=== PATIENT | female | born 1935 | race Caucasian/White ===

== ENCOUNTER 2017-09-06 10:07 | Outpatient (CLI) | payer MEDICARE ==
--- NOTE | 2017-09-08 17:02 | Mammography Report ---
DIGITAL SCREENING MAMMOGRAM: 09/06/2017 CLINICAL INDICATION: An 82-year-old, for screening. COMPARISON: 08/2016, 08/2015, 05/2014, 04/2013, 01/2012, 09/2010. TECHNIQUE: Routine CC and MLO projections were obtained of the breasts. FINDINGS: Scattered fibroglandular tissue is present within the breasts. There are no dominant kin s, suspicious microcalcifications, or secondary signs of malignancy. In comparison to the previous st udies, there are no significant changes. ASSESSMENT: NO MAMMOGRAPHIC EVIDENCE OF MALIGNANCY. NO SIGNIFICANT INTERVAL CHANGES. RECOMMENDATION: Screening mammography is recommended annually. BIRADS category 1 - negative. STANDARD QUALIFYING STATEMENTS 1. This examination was reviewed with the aid of Computed-Aided Detection (CAD). 2. A negative or benign imaging report should not delay biopsy if clinically suspicious findings are present. Consider surgical consultation if warranted. More than 5% of cancers are not identified by i maging. 3. Dense breasts may obscure an underlying neoplasm. JOB #: [id number] EXT JOB #:[id number]
== END 2017-09-06 10:08 | disposition home or self-care (01) ==
LOC: DI.S 10:07
PROVIDERS: ATTEND Physician Assistant Medical
DX: Z12.31 Encounter for screening mammogram for malignant neoplasm of breast (principal)
CPT/HCPCS: 77067

== ENCOUNTER 2017-10-13 09:43 | Outpatient (CLI) | payer MEDICARE ==
[2017-10-13 17:48] LABS: BASOPHILS % (AUTO) 0.4 %; EOSINOPHILS # (AUTO) 0.1 10^3/uL (0.0-0.7); EOSINOPHILS % (AUTO) 0.7 %; HCT - HEMATOCRIT 43.1 % (37.0-47.0); HGB - HEMOGLOBIN 14.1 g/dL (12.0-16.0); LYMPHOCYTES # (AUTO) 0.9 10^3/uL (1.5-3.5); LYMPHOCYTES % (AUTO) 8.2 %; MEAN CORPUSCULAR HEMOGLOBIN 30.1 pg (27.0-31.0); MEAN CORPUSCULAR HGB CONC 32.7 g/dL (32.0-36.0); MEAN PLATELET VOLUME 8.2 fL (7.9-10.8); MONOCYTES % (AUTO) 10.1 %; NEUTROPHILS # (AUTO) 8.4 10^3/uL (1.5-6.6); NEUTROPHILS % (AUTO) 80.6 %; NUCLEATED RED BLOOD CELLS AUTO 0.1 /100WBC; RED BLOOD COUNT 4.68 10^6/uL (4.20-5.40); RED CELL DISTRIBUTION WIDTH 15.4 % (12.0-15.0); UNCORRECTED WHITE BLOOD COUNT 10.4 x10^3/uL; WHITE BLOOD COUNT 10.4 x10^3/uL (4.8-10.8)
[2017-10-13 17:56] LABS: ALBUMIN/GLOBULIN RATIO 1.5 (1.0-2.2); BILIRUBIN,TOTAL 0.8 mg/dL (0.2-1.0); BUN - BLOOD UREA NITROGEN 30 mg/dL (6-20); CALCIUM 8.7 mg/dL (8.5-10.3); CARBON DIOXIDE - CO2 28 mmol/L (21-32); CHLORIDE 97 mmol/L (101-111); CREATININE 1.2 mg/dL (0.4-1.0); GFR - MDRD 43 (>89); GLUCOSE 91 mg/dL (70-100); POTASSIUM 3.5 mmol/L (3.5-5.0); SODIUM 134 mmol/L (135-145); TOTAL PROTEIN 6.7 g/dL (6.7-8.2)
== END 2017-10-13 09:44 | disposition home or self-care (01) ==
LOC: LAB.F 09:43
PROVIDERS: ATTEND Physician Assistant Medical
DX: I10 Essential (primary) hypertension (principal); E03.9 Hypothyroidism, unspecified
CPT/HCPCS: 36415; 80053; 84443; 85025

== ENCOUNTER 2018-04-20 14:05 | Outpatient (CLI) | payer MEDICARE | END 2018-04-20 14:06 | disposition home or self-care (01) | LOC: LAB.F 14:05 | PROVIDERS: ATTEND Physician Assistant Medical | DX: N28.9 Disorder of kidney and ureter, unspecified (principal) | CPT/HCPCS: 36415; 80053 ==

== ENCOUNTER 2018-04-25 09:01 | Outpatient (CLI) | payer MEDICARE ==
[2018-04-25 18:16] LABS: ALBUMIN 3.8 g/dL (3.2-5.5); ALBUMIN/GLOBULIN RATIO 1.4 (1.0-2.2); BILIRUBIN,TOTAL 0.7 mg/dL (0.2-1.0); CALCIUM 9.6 mg/dL (8.5-10.3); TOTAL PROTEIN 6.5 g/dL (6.7-8.2)
== END 2018-04-25 09:02 | disposition home or self-care (01) ==
LOC: LAB.F 09:01
PROVIDERS: ATTEND Physician Assistant Medical
DX: N28.9 Disorder of kidney and ureter, unspecified (principal)
CPT/HCPCS: 36415; 80053

== ENCOUNTER 2018-09-16 15:09 | Outpatient (CLI) | payer MEDICARE ==
--- NOTE | 2018-09-19 08:40 | Mammography Report ---
Reason: ANNUAL SCREENING Procedure Date: 09/16/2018 Accession Number: [id number] / [id number] Procedure: ALANNA - Screening Mammo w/Jsakaran CPT Code: FULL RESULT: EXAM: Screening Mammo w/Jaskaran DATE: 09/16/2018 3:36 PM CLINICAL HISTORY: Routine screening. No personal or family history of breast cancer reported. TECHNIQUE: Bilateral CC and MLO views were obtained. COMPARISON: 09/06/2017 through 05/29/2014 FINDINGS: The breasts demonstrate scattered fibroglandular densities bilaterally. There are no suspicious masses, calcifications or areas of distortion. IMPRESSION: Negative examination RECOMMENDATION: Routine annual screening unless otherwise clinically indicated. BI-RADS CATEGORY 1: Negative STANDARD QUALIFYING STATEMENTS: 1. This examination was not reviewed with the aid of Computer-Aided Detection (CAD). 2. A negative or benign imaging report should not preclude biopsy if clinically suspicious findings are present. 3. Dense breasts may obscure an underlying neoplasm. 4. This examination was reviewed with the aid of 3D breast imaging (tomosynthesis).
== END 2018-09-16 15:10 | disposition home or self-care (01) ==
LOC: DI 15:09
DX: Z12.31 Encounter for screening mammogram for malignant neoplasm of breast (principal)
CPT/HCPCS: 77063; 77067

== ENCOUNTER 2018-11-11 13:10 | Outpatient (CLI) | payer MEDICARE ==
[2018-11-11 17:50] LABS: BASOPHILS % (AUTO) 0.6 %; EOSINOPHILS # (AUTO) 0.1 10^3/uL (0.0-0.7); EOSINOPHILS % (AUTO) 2.2 %; HGB - HEMOGLOBIN 13.7 g/dL (12.0-16.0); LYMPHOCYTES # (AUTO) 0.9 10^3/uL (1.5-3.5); LYMPHOCYTES % (AUTO) 13.8 %; MEAN CORPUSCULAR HEMOGLOBIN 31.3 pg (27.0-31.0); MEAN CORPUSCULAR HGB CONC 33.6 g/dL (32.0-36.0); MEAN CORPUSCULAR VOLUME 93.4 fL (81.0-99.0); MEAN PLATELET VOLUME 8.1 fL (7.9-10.8); MONOCYTES # (AUTO) 0.9 10^3/uL (0.0-1.0); MONOCYTES % (AUTO) 14.6 %; NEUTROPHILS # (AUTO) 4.3 10^3/uL (1.5-6.6); NEUTROPHILS % (AUTO) 68.8 %; PLT - PLATELET COUNT 301 10^3/uL (130-450); RED BLOOD COUNT 4.38 10^6/uL (4.20-5.40); RED CELL DISTRIBUTION WIDTH 13.7 % (12.0-15.0); WHITE BLOOD COUNT 6.2 x10^3/uL (4.8-10.8)
[2018-11-11 18:12] LABS: ALBUMIN/GLOBULIN RATIO 1.4 (1.0-2.2); BILIRUBIN,TOTAL 0.6 mg/dL (0.2-1.0); CALCIUM 9.1 mg/dL (8.5-10.3); CREATININE 0.8 mg/dL (0.4-1.0); TOTAL PROTEIN 6.8 g/dL (6.7-8.2)
== END 2018-11-11 13:11 | disposition home or self-care (01) ==
LOC: LAB.F 13:10
PROVIDERS: ATTEND Physician Assistant Medical
DX: N28.9 Disorder of kidney and ureter, unspecified (principal); D50.9 Iron deficiency anemia, unspecified; M35.3 Polymyalgia rheumatica
CPT/HCPCS: 36415; 80053; 82728; 83540; 84466; 85025; 85651

== ENCOUNTER 2018-12-09 09:15 | Outpatient (CLI) | payer MEDICARE ==
--- NOTE | 2018-12-12 16:31 | DEXA Report ---
Reason: POSTMENOPAUSAL STATUS Procedure Date: 12/09/2018 Accession Number: [id number] / [id number] Procedure: DEX - Dexa Spine and/or Hip CPT Code: FULL RESULT: EXAM: Dexa Spine and/or Hip DATE: 12/09/2018 10:13 AM CLINICAL HISTORY: POSTMENOPAUSAL STATUS TECHNIQUE: Dual energy x-ray absorptiometry (DXA) was performed on a Milk System. Regions measured are the AP Spine, femoral neck, and if needed forearm. COMPARISON: None. In accordance with the International Society for Clinical Densitometry (ISCD) guidelines, data from previous exams may be reanalyzed using current recommendations and techniques. This is done to allow a more accurate basis for comparison with the current study. FINDINGS: The data for the lumbar spine is as follows: BMD (g/cm/cm) T-SCORE Z-SCORE REGION L1 0.937 -1.6 0.4 L2 1.054 -1.2 0.8 L3 1.068 -1.1 1.0 L4 1.029 -1.4 0.6 TOTAL 1.024 -1.3 0.8 NOTE: All evaluable vertebrae are used for classification The data for the hip is as follows: BMD (g/cm/cm) T-SCORE Z-SCORE REGION Neck 0.690 -2.5 0.0 TOTAL 0.728 -2.2 0.1 NOTE: The femoral neck or total proximal femur, whichever is lowest, is used for classification. IMPRESSION: THE WHO CLASSIFICATION BASED ON THE INTERNATIONAL REFERENCE STANDARD IS OSTEOPOROSIS. THE FRACTURE RISK IS HIGH. RECOMMENDATION: Patients with diagnosis of osteoporosis or osteopenia should have regular bone mineral density assessment. For those eligible for Medicare, routine testing is allowed once every 2 years. Testing frequency can be increased for patients who have rapidly progressing disease or for those who are receiving medical therapy to restore bone mass. COMMENT: World Health Organization (WHO) definitions for osteoporosis and osteopenia: NORMAL BMD: T-score at -1.0 or higher, fracture risk is low OSTEOPENIA BMD: T-score between -1.0 and -2.5, fracture risk is increased. OSTEOPOROSIS BMD: T-score at -2.5 or lower, fracture risk is high. National Osteoporosis Foundation recommends: 1. Obtain adequate dietary calcium (at least 1200 mg per day) and vitamin D (400-800 international units per day). 2. Participate, as appropriate, in regular weightbearing and muscle-strengthening exercise. 3. Avoid tobacco use and reduce alcohol and caffeine intake. 4. For more detailed information see the website at www.NOF.org.
== END 2018-12-09 09:16 | disposition home or self-care (01) ==
LOC: DI 09:15
PROVIDERS: ATTEND Physician Assistant Medical
DX: M81.0 Age-related osteoporosis without current pathological fracture (principal)
CPT/HCPCS: 77080

== ENCOUNTER 2019-02-17 11:50 | Outpatient (CLI) | payer MEDICARE | END 2019-02-17 11:51 | disposition home or self-care (01) | LOC: LAB.F 11:50 | PROVIDERS: ATTEND Physician Assistant Medical | DX: E03.9 Hypothyroidism, unspecified (principal) | CPT/HCPCS: 36415; 84443 ==

== ENCOUNTER 2019-11-14 07:30 | Outpatient (CLI) | payer MEDICARE ==
[2019-11-14 11:29] LABS: ALBUMIN 3.9 g/dL (3.2-5.5); ALBUMIN/GLOBULIN RATIO 1.4 (1.0-2.2); ALKALINE PHOSPHATASE 74 IU/L (42-121); ALT ALANINE AMINOTRANSFERASE 21 IU/L (10-60); AST ASPARTATE AMINOTRANSFERASE 24 IU/L (10-42); BILIRUBIN,TOTAL 0.7 mg/dL (0.2-1.0); BUN - BLOOD UREA NITROGEN 15 mg/dL (6-20); CALCIUM 8.8 mg/dL (8.5-10.3); CARBON DIOXIDE - CO2 27 mmol/L (21-32); CHLORIDE 91 mmol/L (101-111); CHOL/HDL RATIO 3.3 (<4.4); CHOLESTEROL 210 mg/dL; CREATININE 0.9 mg/dL (0.4-1.0); GFR - MDRD 60 (>89); GLUCOSE 102 mg/dL (70-100); HDL CHOLESTEROL 64 mg/dL; LDL CHOLESTEROL,CALCULATED 121 mg/dL; LDL/HDL RATIO 1.9 (<4.4); SODIUM 127 mmol/L (135-145); TOTAL PROTEIN 6.7 g/dL (6.7-8.2); VLDL CHOLESTEROL 25 mg/dL
[2019-11-14 11:32] LABS: BASOPHILS % (AUTO) 0.6 %; EOSINOPHILS # (AUTO) 0.1 10^3/uL (0.0-0.7); EOSINOPHILS % (AUTO) 1.5 %; HGB - HEMOGLOBIN 11.2 g/dL (12.0-16.0); LYMPHOCYTES # (AUTO) 0.9 10^3/uL (1.5-3.5); LYMPHOCYTES % (AUTO) 12.2 %; MEAN CORPUSCULAR HEMOGLOBIN 30.4 pg (27.0-31.0); MEAN CORPUSCULAR HGB CONC 33.3 g/dL (32.0-36.0); MEAN CORPUSCULAR VOLUME 91.1 fL (81.0-99.0); MEAN PLATELET VOLUME 9.1 fL (7.9-10.8); MONOCYTES # (AUTO) 0.6 10^3/uL (0.0-1.0); MONOCYTES % (AUTO) 8.3 %; NEUTROPHILS # (AUTO) 5.5 10^3/uL (1.5-6.6); PLT - PLATELET COUNT 436 10^3/uL (130-450); RED BLOOD COUNT 3.69 10^6/uL (4.20-5.40); RED CELL DISTRIBUTION WIDTH 12.7 % (12.0-15.0); WHITE BLOOD COUNT 7.2 x10^3/uL (4.8-10.8)
[2019-11-14 11:35] LABS: HB2 TOTAL 11.3 g/dL; HEMOGLOBIN A1C 0.43 g/dL; HEMOGLOBIN A1C % 5.6 % (4.6-6.2)
== END 2019-11-14 07:31 | disposition home or self-care (01) ==
LOC: LAB.S 07:30
PROVIDERS: ATTEND Registered Nurse
DX: E87.1 Hypo-osmolality and hyponatremia (principal); D50.9 Iron deficiency anemia, unspecified; R73.01 Impaired fasting glucose; E03.9 Hypothyroidism, unspecified; M35.3 Polymyalgia rheumatica; M50.30 Other cervical disc degeneration, unspecified cervical region; M15.9 Polyosteoarthritis, unspecified
CPT/HCPCS: 36415; 80053; 80061; 83036; 83721; 84443; 85025

== ENCOUNTER 2019-11-21 15:12 | Outpatient (CLI) | payer MEDICARE ==
--- NOTE | 2019-11-21 16:32 | XRAY Report ---
Reason: ACUTE LOW BACK PAIN Procedure Date: 11/21/2019 Accession Number: [id number] / [id number] Procedure: XRS - Lumbar Spine Complete CPT Code: Final Report FULL RESULT: EXAM: LUMBOSACRAL SPINE RADIOGRAPHY EXAM DATE: 11/21/2019 03:32 PM. CLINICAL HISTORY: ACUTE LOW BACK PAIN. COMPARISONS: None. TECHNIQUE: 5 views. FINDINGS: Alignment: Normal. No spondylolisthesis or scoliosis. Visualized osseous neural foramina on the oblique views demonstrate osseous patency, suboptimal visualization of the upper lumbar spine. Bones: Five [id number] lumbar vertebral bodies are present, vestigial ribs are noted at the lowest thoracic level. The bones are qualitatively osteopenic; this limits evaluation for underlying fractures or masses. There is minimal anterior loss of height of T12, 25% or less, age indeterminate. Within these limitations no other convincing fracture is seen. Disks: Multilevel marginal osteophyte ptosis without overt loss of disk space height. Facets: Multilevel facet arthropathy is most pronounced at L4 and L5 where it is at least moderate. Sacroiliac Joints: Unremarkable. Soft Tissues: Normal. The visualized bowel gas pattern is normal. IMPRESSION: Age indeterminate mild loss of height anteriorly of the T12 vertebral body. RADIA
== END 2019-11-21 15:13 | disposition home or self-care (01) ==
LOC: DI.S 15:12
PROVIDERS: ATTEND Internal Medicine
DX: M89.8X8 Other specified disorders of bone, other site (principal)
CPT/HCPCS: 72110

== ENCOUNTER 2019-11-24 15:19 | Outpatient (CLI) | payer MEDICARE | END 2019-11-24 15:20 | disposition EMS.NT | LOC: EMS 15:19 | PROVIDERS: ATTEND Surgery | DX: R53.1 Weakness (principal); M54.5 Low back pain ==

== ENCOUNTER 2019-12-18 13:49 | Outpatient (CLI) | payer MEDICARE ==
[2019-12-18 18:04] LABS: CALCIUM 8.8 mg/dL (8.5-10.3); CREATININE 0.9 mg/dL (0.4-1.0)
== END 2019-12-18 13:50 | disposition home or self-care (01) ==
LOC: LAB.S 13:49
PROVIDERS: ATTEND Physician Assistant Medical
DX: E87.1 Hypo-osmolality and hyponatremia (principal); D50.9 Iron deficiency anemia, unspecified
CPT/HCPCS: 36415; 80048; 82728

== ENCOUNTER 2020-08-09 09:17 | Outpatient (CLI) | payer MEDICARE ==
[2020-08-09 15:20] LABS: BASOPHILS # (AUTO) 0.1 10^3/uL (0.0-0.1); BASOPHILS % (AUTO) 0.7 %; EOSINOPHILS # (AUTO) 0.2 10^3/uL (0.0-0.7); EOSINOPHILS % (AUTO) 2.8 %; HGB - HEMOGLOBIN 14.1 g/dL (12.0-16.0); LYMPHOCYTES # (AUTO) 1.1 10^3/uL (1.5-3.5); LYMPHOCYTES % (AUTO) 15.3 %; MEAN CORPUSCULAR HEMOGLOBIN 31.5 pg (27.0-31.0); MEAN CORPUSCULAR HGB CONC 32.2 g/dL (32.0-36.0); MEAN CORPUSCULAR VOLUME 97.8 fL (81.0-99.0); MEAN PLATELET VOLUME 9.7 fL (7.9-10.8); MONOCYTES # (AUTO) 0.8 10^3/uL (0.0-1.0); MONOCYTES % (AUTO) 10.1 %; NEUTROPHILS # (AUTO) 5.3 10^3/uL (1.5-6.6); NEUTROPHILS % (AUTO) 70.8 %; PLT - PLATELET COUNT 296 10^3/uL (130-450); RED BLOOD COUNT 4.48 10^6/uL (4.20-5.40); RED CELL DISTRIBUTION WIDTH 13.2 % (12.0-15.0); WHITE BLOOD COUNT 7.4 x10^3/uL (4.8-10.8)
[2020-08-09 15:39] LABS: % IRON SATURATION 18 % (20-50); ALBUMIN 3.8 g/dL (3.2-5.5); ALBUMIN/GLOBULIN RATIO 1.3 (1.0-2.2); ALKALINE PHOSPHATASE 65 IU/L (42-121); ALT ALANINE AMINOTRANSFERASE 20 IU/L (10-60); AST ASPARTATE AMINOTRANSFERASE 21 IU/L (10-42); BILIRUBIN,TOTAL 0.8 mg/dL (0.2-1.0); BUN - BLOOD UREA NITROGEN 25 mg/dL (6-20); CARBON DIOXIDE - CO2 28 mmol/L (21-32); CHLORIDE 97 mmol/L (101-111); CHOL/HDL RATIO 4.1 (<4.4); CHOLESTEROL 223 mg/dL; CREATININE 0.9 mg/dL (0.4-1.0); GLUCOSE 95 mg/dL (70-100); HDL CHOLESTEROL 54 mg/dL; IRON 55 ug/dL (28-170); LDL CHOLESTEROL,CALCULATED 136 mg/dL; LDL/HDL RATIO 2.5 (<4.4); SODIUM 133 mmol/L (135-145); TOTAL IRON BINDING CAPACITY 312 ug/dL (250-450); TOTAL PROTEIN 6.7 g/dL (6.7-8.2); TRANSFERRIN 223 mg/dL (192-382); VLDL CHOLESTEROL 33 mg/dL
== END 2020-08-09 09:18 | disposition home or self-care (01) ==
LOC: LAB.S 09:17
PROVIDERS: ATTEND Registered Nurse
DX: I10 Essential (primary) hypertension (principal); E03.9 Hypothyroidism, unspecified; E87.1 Hypo-osmolality and hyponatremia; D50.9 Iron deficiency anemia, unspecified; F32.9 Major depressive disorder, single episode, unspecified
CPT/HCPCS: 36415; 80053; 80061; 82728; 83540; 83721; 84443; 84466; 85025

== ENCOUNTER 2021-08-15 09:00 | Outpatient (CLI) | payer MEDICARE ==
[2021-08-15 14:45] LABS: BASOPHILS % (AUTO) 0.6 %; EOSINOPHILS # (AUTO) 0.2 10^3/uL (0.0-0.7); EOSINOPHILS % (AUTO) 3.5 %; HCT - HEMATOCRIT 45.8 % (37.0-47.0); HGB - HEMOGLOBIN 14.7 g/dL (12.0-16.0); LYMPHOCYTES % (AUTO) 15.4 %; MEAN CORPUSCULAR HEMOGLOBIN 30.9 pg (27.0-31.0); MEAN CORPUSCULAR HGB CONC 32.1 g/dL (32.0-36.0); MEAN CORPUSCULAR VOLUME 96.4 fL (81.0-99.0); MEAN PLATELET VOLUME 9.9 fL (7.9-10.8); MONOCYTES # (AUTO) 0.6 10^3/uL (0.0-1.0); NEUTROPHILS # (AUTO) 4.4 10^3/uL (1.5-6.6); PLT - PLATELET COUNT 283 10^3/uL (130-450); RED BLOOD COUNT 4.75 10^6/uL (4.20-5.40); RED CELL DISTRIBUTION WIDTH 13.2 % (12.0-15.0); WHITE BLOOD COUNT 6.3 x10^3/uL (4.8-10.8)
[2021-08-15 15:16] LABS: ALBUMIN/GLOBULIN RATIO 1.4 (1.0-2.2); ALKALINE PHOSPHATASE 68 IU/L (42-121); ALT ALANINE AMINOTRANSFERASE 17 IU/L (10-60); AST ASPARTATE AMINOTRANSFERASE 21 IU/L (10-42); BILIRUBIN,TOTAL 0.7 mg/dL (0.2-1.0); BUN - BLOOD UREA NITROGEN 23 mg/dL (6-20); CALCIUM 8.8 mg/dL (8.5-10.3); CARBON DIOXIDE - CO2 29 mmol/L (21-32); CHLORIDE 94 mmol/L (101-111); CHOL/HDL RATIO 4.4 (<4.4); CHOLESTEROL 219 mg/dL; CREATININE 0.9 mg/dL (0.4-1.0); GFR - MDRD 59 (>89); GLUCOSE 96 mg/dL (70-100); HDL CHOLESTEROL 50 mg/dL; LDL CHOLESTEROL,CALCULATED 121 mg/dL; LDL/HDL RATIO 2.4 (<4.4); POTASSIUM 4.4 mmol/L (3.5-5.0); SODIUM 131 mmol/L (135-145); TOTAL PROTEIN 6.8 g/dL (6.7-8.2); TRIGLYCERIDES 240 mg/dL; VLDL CHOLESTEROL 48 mg/dL
[2021-08-15 15:20] LABS: T4 (THYROXINE) 7.41 ug/dL (6.09-12.23)
[2021-08-15 15:24] LABS: THYROID STIMULATING HORMONE 2.83 uIU/mL (0.34-5.60)
== END 2021-08-15 09:01 | disposition home or self-care (01) ==
LOC: LAB.S 09:00
PROVIDERS: ATTEND Registered Nurse
DX: E87.1 Hypo-osmolality and hyponatremia (principal); D50.9 Iron deficiency anemia, unspecified; E03.9 Hypothyroidism, unspecified; M35.3 Polymyalgia rheumatica; I10 Essential (primary) hypertension
CPT/HCPCS: 36415; 80053; 80061; 83721; 84153; 84436; 84443; 84480; 85025

== ENCOUNTER 2022-10-24 09:00 | Outpatient (CLI) | payer MEDICARE ==
[2022-10-24 09:14] LABS: BASOPHILS # (AUTO) 0.1 10^3/uL (0.0-0.1); BASOPHILS % (AUTO) 0.8 %; EOSINOPHILS # (AUTO) 0.4 10^3/uL (0.0-0.7); EOSINOPHILS % (AUTO) 5.3 %; HCT - HEMATOCRIT 40.5 % (37.0-47.0); HGB - HEMOGLOBIN 13.1 g/dL (12.0-16.0); LYMPHOCYTES % (AUTO) 13.4 %; MEAN CORPUSCULAR HEMOGLOBIN 31.6 pg (27.0-31.0); MEAN CORPUSCULAR HGB CONC 32.3 g/dL (32.0-36.0); MEAN CORPUSCULAR VOLUME 97.6 fL (81.0-99.0); MEAN PLATELET VOLUME 9.2 fL (7.9-10.8); MONOCYTES # (AUTO) 0.7 10^3/uL (0.0-1.0); MONOCYTES % (AUTO) 9.1 %; NEUTROPHILS # (AUTO) 5.1 10^3/uL (1.5-6.6); NEUTROPHILS % (AUTO) 71.1 %; PLT - PLATELET COUNT 302 10^3/uL (130-450); RED BLOOD COUNT 4.15 10^6/uL (4.20-5.40); RED CELL DISTRIBUTION WIDTH 13.1 % (12.0-15.0); WHITE BLOOD COUNT 7.1 x10^3/uL (4.8-10.8)
[2022-10-24 09:32] LABS: ALBUMIN 3.9 g/dL (3.2-5.5); ALBUMIN/GLOBULIN RATIO 1.3 (1.0-2.2); ALKALINE PHOSPHATASE 55 IU/L (42-121); ALT ALANINE AMINOTRANSFERASE 20 IU/L (10-60); AST ASPARTATE AMINOTRANSFERASE 21 IU/L (10-42); BILIRUBIN,TOTAL 0.5 mg/dL (0.2-1.0); BUN - BLOOD UREA NITROGEN 24 mg/dL (6-20); CALCIUM 8.9 mg/dL (8.5-10.3); CARBON DIOXIDE - CO2 29 mmol/L (21-32); CHLORIDE 98 mmol/L (101-111); CHOL/HDL RATIO 4.2 (<4.4); CHOLESTEROL 197 mg/dL; GFR - MDRD 52 (>89); GLUCOSE 95 mg/dL (70-100); HDL CHOLESTEROL 47 mg/dL; LDL CHOLESTEROL,CALCULATED 116 mg/dL; LDL/HDL RATIO 2.5 (<4.4); POTASSIUM 4.1 mmol/L (3.5-5.0); SODIUM 135 mmol/L (135-145); TOTAL PROTEIN 6.8 g/dL (6.7-8.2); TRIGLYCERIDES 168 mg/dL; VLDL CHOLESTEROL 34 mg/dL
[2022-10-24 09:43] LABS: THYROID STIMULATING HORMONE 2.37 uIU/mL (0.34-5.60)
== END 2022-10-24 09:01 | disposition home or self-care (01) ==
LOC: LAB 09:00
PROVIDERS: ATTEND Registered Nurse
DX: I10 Essential (primary) hypertension (principal); Z79.899 Other long term (current) drug therapy; E87.1 Hypo-osmolality and hyponatremia; D50.9 Iron deficiency anemia, unspecified; E03.9 Hypothyroidism, unspecified
CPT/HCPCS: 36415; 80053; 80061; 83721; 84443; 85025

== ENCOUNTER 2023-08-08 11:37 | Emergency (ER) | payer MEDICARE ==
--- NOTE | 2023-08-08 12:16 | ED Physician Documentation ---
PD HPI FOCAL NEURO - Stated complaint Stated Complaint: LT ARM WEAK/NOT FEELING WELL - Chief complaint Chief Complaint: Neuro - History obtained from History obtained from: Patient, Family - History of Present Illness Timing - onset: How many days ago (patient is feeling "just not myself" for past few days. Has also noted left arm weakness for the past 10 days off and on. Denies numbness. No weakness of leg/face. No visual changes. No trouble speaking. Family member states the patient has complained of arm feeling weak intermittently.) Timing - duration: Days (10) Timing - details: Gradual onset, Waxing and waning Severity of deficit: Mild (she says feels weak for lifting arm. She denies problems with using utensils, nor with gripping/lifting such as glasses for drinking.) Weakness: Arm, Left. No: Face, Leg Numbness: No: Face, Arm, Leg Associated symptoms: Other (she had noted her BP elevated last week and went to [facility]. Did not tell them of arm weakness at that time. They increased her CLonidine patch from 0.1 mg to 0.3 mg. Family takes BP 2-3 times at home and has recorded SBP at 118, 108, 106, but others 130-145 systolic.). No: Headache, Chest pain, Neck pain, Back pain, Fever Contributing factors: negative: Anticoagulated Baseline status: positive: A&OX3, ambulatory, indep Similar symptoms before: Has not had sx before Recently seen: Clinic (for HTN) Review of Systems Constitutional: denies: Fever Nose: denies: Rhinorrhea / runny nose, Congestion Throat: denies: Sore throat Cardiac: denies: Chest pain / pressure, Palpitations, Pedal edema, Calf pain Respiratory: denies: Dyspnea, Cough, Wheezing GI: denies: Abdominal Pain, Nausea, Vomiting, Diarrhea Musculoskeletal: denies: Neck pain, Back pain Neurologic: reports: Focal weakness (left arm gross motor for 10 days). denies: Generalized weakness, Numbness, Difficulty speaking, Near syncope (but feeling ightheaded at times to past several days.), Headache PD PAST MEDICAL HISTORY - Past Medical History Cardiovascular: Hypertension Respiratory: None Neuro: None Endocrine/Autoimmune: None - Allergies Allergies/Adverse Reactions: Allergies Allergy/AdvReac Type Severity Reaction Status Date / Time No Known Drug Allergies Allergy Verified 08/08/23 11:52 PD ED PE NORMAL - Vitals Vital signs reviewed: Yes - General General: Alert and oriented X 3, No acute distress, Well developed/nourished - HEENT HEENT: Pharynx benign - Neck Neck: Supple, no meningeal sign, No adenopathy - Cardiac Cardiac: RRR, No murmur - Respiratory Respiratory: No respiratory distress, Clear bilaterally - Abdomen Abdomen: Soft, Non tender - Derm Derm: Normal color, Warm and dry - Extremities Extremities: No edema, No calf tenderness / cord - Neuro Neuro: Alert and oriented X 3, No motor deficit (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 FInger dexterity seems okay and symmetric. No faical weakness. Walks without limp. ), No sensory deficit, Normal speech NIHSS - Level of Consciousness Level of consciousness: (0) Alert, Keenly responsive LOC Questions: (0) Answers both Q's correct LOC Commands: (0) Performs both correctly - Gaze Best Gaze: (0) Normal - Visual Visual: (0) No loss - Facial Palsy Facial Palsy: (0) Normal, symmetrical movement - Motor Arms (both separate) Motor Arm (right): (0) No drift Motor Arm (left): (0) No drift - Motor Legs (both separate) Motor Leg (right): (0) No drift Motor Leg (left): (0) No drift - Limb Ataxia Limb Ataxia: (0) Absent - Sensory Sensory: (0) Normal - Best Language Best Language: (0) No aphasia - Dysarthria Dysarthria: (0) Normal - Extinction and Inattention (formally neg Extinction and inattention: (0) No abnormality - Total Score/Results Total Score/Result: 0 Results - Vitals Vitals: Oxygen O2 Source Room air - Labs Labs: Laboratory Tests 08/08/23 08/08/23 08/08/23 12:16 12:16 12:16 WBC 7.7 RBC 4.20 Hgb 13.7 Hct 39.6 MCV 94.3 MCH 32.6 H MCHC 34.6 RDW 12.7 Plt Count 257 MPV 8.7 Neut # (Auto) 5.7 Lymph # (Auto) 0.8 L Ida # (Auto) 0.9 Eos # (Auto) 0.3 Baso # (Auto) 0.1 Absolute Nucleated RBC 0.00 Nucleated RBC % 0.0 ESR 5 Sodium 128 L Potassium 4.5 Chloride 94 L Carbon Dioxide 29 Anion Gap 5.0 L BUN 26 H Creatinine 1.0 Estimated GFR (MDRD) 52 L Glucose 111 H Calcium 9.0 Magnesium Total Bilirubin 0.4 AST 16 ALT 17 Alkaline Phosphatase 57 C-Reactive Protein B-Natriuretic Peptide Total Protein 6.4 Albumin 3.9 Globulin 2.5 Albumin/Globulin Ratio 1.6 Lipase 41 08/08/23 08/08/23 12:16 12:16 WBC RBC Hgb Hct MCV MCH MCHC RDW Plt Count MPV Neut # (Auto) Lymph # (Auto) Ida # (Auto) Eos # (Auto) Baso # (Auto) Absolute Nucleated RBC Nucleated RBC % ESR Sodium Potassium Chloride Carbon Dioxide Anion Gap BUN Creatinine Estimated GFR (MDRD) Glucose Calcium Magnesium 1.7 Total Bilirubin AST ALT Alkaline Phosphatase C-Reactive Protein 0.8 H B-Natriuretic Peptide 213 H Total Protein Albumin Globulin Albumin/Globulin Ratio Lipase - Rads (name of study) head CT Relevant Findings:: Prelim report reviewed (no acute abnormality), EMP independent interpretation of test PD Medical Decision Making - ED course Complexity details: reviewed results (sodium of 128 is not terribly low but is newly low for her. This may be leading to some of her symptoms. The arm weakness may be related to shoulder muscles/etc and is not patterned as I would think for central cause. Head CT did not show any abnormality. MRI could be considered if persists.), considered differential (Patient with lightheaded and "just not feeling right". Can check lytes, CBC, head CT. The record of measured BPs over the past week show some relatively too low at 105-120 range. ), d/w patient Reviewed Lab Results: sodium is low but other lytes are good as is renal function. Daughter states pt PCP is putting in for ECHO for the patient. I suggested that they ask PCP about renal artery US if they are wanting to work up persistent HTN. ED course: The general feeling of unwell and "not myself" may relate to low sodium new for her, and also the increased clonidine could be having central side effects (as is common for it). Also consider relatively low BP causing some symptoms. Her BP today is a bit high, but family has recorded values 2-3 times daily for the past week and is much lower after adjusted BP med. I would consider decreasing to the middle dose (had been 0.1 mg patch rasied to 0.3; I would suggest trying 0.2 and if still relatively low at times, then back to 0.1). She had been on diuretic and is not now, so presume the low sodium will self-correct with diet, but I did give some NS IV fluids here. Departure - Departure Disposition: Home, Self Care Clinical Impression: Hyponatremia, Lightheadedness, Left arm weakness, History of hypertension Condition: Stable Record reviewed to determine appropriate education?: Yes Instructions: ED Weakness [facility] Follow-Up: Kristine Han ARNP [Primary Care Provider] - Comments: Your head CT scan does not show any acute abnormality. In particular no signs of bleeding, swelling, tumors, findings of stroke. The CT can miss mild subtle abnormalities. But given your symptoms right now I do feel it is an adequate test to exclude significant problems. Your sodium level is low at 128 which may account for the symptoms you are having of not "quite feeling yourself" and lightheadedness per se. You could also be having symptoms related to relatively low blood pressure or you. I would suggest decreasing your clonidine from the recent 0.3 mg dose patch back down to either 0.1 or 0.2. If you still have the 0.1 patches you can do 2 of them to get a 0.2 dosing. This will be temporary for now to see how your blood pressure does with that and if your symptoms improve. The low sodium should correct with regular diet and just continuing to be off the diuretic. The clonidine could be affecting it a little as well and the lower dose of that will help as well. I would not add salt/sodium to your diet as that does not really contribute to the serum sodium level. That is more regulated by the kidneys and interacted with met by medications. The left arm weakness may be related to a more local process such as some inflammation in the muscles from your recent vaccines or sometimes even a stretching of the nerve through the shoulder. See if that clears up over the next several days to week. Contact your primary care in the next day or 2. Let them know that we had decre ased your clonidine back down and that I also suggest having a repeat chemistry panel to look at your electrolytes and sodium level in particular later in the week. See if they can order those outpatient. Forms: PCP List Discharge Date/Time: 08/08/23 14:45
[2023-08-08 12:20] LABS: BASOPHILS # (AUTO) 0.1 10^3/uL (0.0-0.1); BASOPHILS % (AUTO) 0.6 %; EOSINOPHILS # (AUTO) 0.3 10^3/uL (0.0-0.7); EOSINOPHILS % (AUTO) 3.6 %; HCT - HEMATOCRIT 39.6 % (37.0-47.0); HGB - HEMOGLOBIN 13.7 g/dL (12.0-16.0); LYMPHOCYTES # (AUTO) 0.8 10^3/uL (1.5-3.5); LYMPHOCYTES % (AUTO) 10.9 %; MEAN CORPUSCULAR HEMOGLOBIN 32.6 pg (27.0-31.0); MEAN CORPUSCULAR HGB CONC 34.6 g/dL (32.0-36.0); MEAN CORPUSCULAR VOLUME 94.3 fL (81.0-99.0); MEAN PLATELET VOLUME 8.7 fL (7.9-10.8); MONOCYTES # (AUTO) 0.9 10^3/uL (0.0-1.0); MONOCYTES % (AUTO) 11.3 %; NEUTROPHILS # (AUTO) 5.7 10^3/uL (1.5-6.6); NEUTROPHILS % (AUTO) 73.5 %; PLT - PLATELET COUNT 257 10^3/uL (130-450); RED CELL DISTRIBUTION WIDTH 12.7 % (12.0-15.0); WHITE BLOOD COUNT 7.7 x10^3/uL (4.8-10.8)
[2023-08-08 12:38] LABS: ALBUMIN 3.9 g/dL (3.2-5.5); ALBUMIN/GLOBULIN RATIO 1.6 (1.0-2.2); BILIRUBIN,TOTAL 0.4 mg/dL (0.2-1.0); POTASSIUM 4.5 mmol/L (3.5-4.5); TOTAL PROTEIN 6.4 g/dL (6.4-8.9)
[2023-08-08] MEDS ORDERED: SODIUM CHLORIDE 0.9% 500 ML IV STA (12:53)
[2023-08-08 13:12] LABS: CRP - C-REACTIVE PROTEIN 0.8 mg/dL (<0.5); MAGNESIUM 1.7 mg/dL (1.7-2.3)
--- NOTE | 2023-08-08 14:16 | CT Report ---
PROCEDURE: HEAD WO INDICATIONS: left arm weakness x 10 days TECHNIQUE: Noncontrast 4.5 mm thick angled axial sections acquired from the foramen magnum to the vertex. For r adiation dose reduction, the following was used: automated exposure control, adjustment of mA and/or kV according to patient size. COMPARISON: None. FINDINGS: Image quality: Excellent. CSF spaces: Basal cisterns are patent. No extra-axial fluid collections. Ventricles are normal in size and shape. Brain: No midline shift. No intracranial masses or hemorrhage. Areas of hypoattenuation within the deep and periventricular white matter, nonspecific and likely representing chronic microvascular isch emic change. Age-related global volume loss. Desouza-white matter interface is normal. Skull and face: Calvarium and visualized facial bones are intact, without suspicious lesions. Bilat eral lens replacements. The orbits are otherwise normal in appearance. Sinuses: Paranasal sinus mucosal thickening. The mastoids are clear. IMPRESSION: No acute intracranial pathology. Reviewed by: Kuldeep Velásquez MD on 08/08/2023 2:15 PM PDT Approved by: Kuldeep Velásquez MD on 08/08/2023 2:15 PM PDT Station ID: [id number]
[2023-08-08 14:38] VITALS: BP 165/67; O2SAT 98
== END 2023-08-08 14:45 | disposition home or self-care (01) ==
LOC: ED 11:37
DX: E87.1 Hypo-osmolality and hyponatremia (principal); R42 Dizziness and giddiness; R53.1 Weakness; I10 Essential (primary) hypertension; Z79.899 Other long term (current) drug therapy
CPT/HCPCS: 36415; 80053; 83690; 83735; 83880; 85025; 85651; 86140; 99284

== ENCOUNTER 2023-08-25 07:46 | Outpatient (CLI) | payer MEDICARE | END 2023-08-25 07:47 | disposition home or self-care (01) | LOC: DI 07:46 | PROVIDERS: ATTEND Registered Nurse | DX: R42 Dizziness and giddiness (principal); I11.9 Hypertensive heart disease without heart failure | CPT/HCPCS: 93306 ==

== ENCOUNTER 2023-10-05 09:52 | Inpatient (IN) | payer MEDICARE ==
[2023-10-05 10:37] LABS: BASOPHILS % (AUTO) 0.2 %; EOSINOPHILS # (AUTO) 0.2 10^3/uL (0.0-0.7); HCT - HEMATOCRIT 40.7 % (37.0-47.0); HGB - HEMOGLOBIN 13.4 g/dL (12.0-16.0); LYMPHOCYTES # (AUTO) 0.6 10^3/uL (1.5-3.5); LYMPHOCYTES % (AUTO) 5.1 %; MEAN CORPUSCULAR HEMOGLOBIN 32.2 pg (27.0-31.0); MEAN CORPUSCULAR HGB CONC 32.9 g/dL (32.0-36.0); MEAN CORPUSCULAR VOLUME 97.8 fL (81.0-99.0); MEAN PLATELET VOLUME 9.4 fL (7.9-10.8); MONOCYTES # (AUTO) 1.3 10^3/uL (0.0-1.0); MONOCYTES % (AUTO) 10.8 %; NEUTROPHILS % (AUTO) 81.2 %; PLT - PLATELET COUNT 310 10^3/uL (130-450); RED BLOOD COUNT 4.16 10^6/uL (4.20-5.40); RED CELL DISTRIBUTION WIDTH 12.9 % (12.0-15.0); WHITE BLOOD COUNT 12.3 x10^3/uL (4.8-10.8)
[2023-10-05 10:51] LABS: ALBUMIN 3.6 g/dL (3.2-5.5); ALBUMIN/GLOBULIN RATIO 1.2 (1.0-2.2); BILIRUBIN,TOTAL 0.6 mg/dL (0.2-1.0); CALCIUM 9.6 mg/dL (8.5-10.3); CREATININE 1.3 mg/dL (0.6-1.3); POTASSIUM 3.9 mmol/L (3.5-4.5); TOTAL PROTEIN 6.7 g/dL (6.4-8.9)
[2023-10-05 10:53] LABS: BILIRUBIN,URINE NEGATIVE (NEGATIVE); GLUCOSE, URINE (UA) NEGATIVE (NEGATIVE); KETONES,URINE (UA) NEGATIVE (NEGATIVE); LEUKOCYTE ESTERASE, URINE NEGATIVE (NEGATIVE); NITRITE,URINE NEGATIVE (NEGATIVE); OCCULT BLOOD,URINE NEGATIVE (NEGATIVE); PH,URINE 5.5 PH (5.0-7.5); PROTEIN,URINE 30 mg/dL (NEGATIVE); UROBILINOGEN,URINE 0.2 (NORMAL) E.U./dL (NORMAL)
[2023-10-05 10:55] LABS: CLARITY,URINE CLEAR (CLEAR)
[2023-10-05 11:00] LABS: AMORPHOUS SEDIMENT,UR Few /LPF; BACTERIA,URINE Few /HPF (None Seen); RBC,URINE 0-5 /HPF (0-5); SQUAMOUS EPITHELIAL CELL,UR FEW Squamous (<= Few); WBC,URINE 0-3 /HPF (0-5)
[2023-10-05 11:01] LABS: CASTS, URINE 3-5 Hyaline Casts /LPF
[2023-10-05] MEDS ORDERED: SODIUM CHLORIDE 0.9% 1,000 ML IV STA (11:14)
--- NOTE | 2023-10-05 12:00 | ED Physician Documentation ---
PD HPI ABD PAIN - Stated complaint Stated Complaint: ABD PX - Chief complaint Chief Complaint: Abd Pain - History obtained from History obtained from: Patient - Additional information Additional information: Patient is an 88-year-old female presenting for evaluation of right lower quadrant abdominal pain that has been present since Wednesday. She has had a little bit of a decreased appetite over the weekend. She did have an episode of emesis on Wednesday. Nothing makes the pain better or worse. She has had a prior hysterectomy but denies other abdominal surgeries. Her last bowel movement was this morning and normal for her. She does not take a blood thinner. No fever, chest pain, shortness of air, dysuria or frequency. Last oral intake was this morning around 9:00. Patient reports she had a little bit of cereal. Review of Systems Constitutional: denies: Fever Cardiac: denies: Chest pain / pressure Respiratory: denies: Dyspnea GI: reports: Abdominal Pain, Vomiting. 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 : None Psych: Depression Musculoskeletal: Osteoarthritis Derm: None - Past Surgical History Past Surgical History: Yes Ortho: Spine surgery /OPERATOR RECEPTIONIST: Hysterectomy - Present Medications Home Medications: Ambulatory Orders Medication Instructions Recorded Confirmed Acetaminophen [Tylenol] 1,000 mg PO TID 10/05/23 10/05/23 Amitriptyline [Elavil] 10 mg PO HS 10/05/23 10/05/23 Ferrous Sulfate [Feosol] 325 mg PO DAILY 10/05/23 10/05/23 Losartan Potassium 100 mg PO DAILY 10/05/23 10/05/23 Sucralfate [Carafate] 1 tablet PO HS 10/05/23 10/05/23 Thyroid,Pork [[place] Thyroid] 30 mg ORAL DAILY 10/05/23 10/05/23 Verapamil ER [Calan SA] 120 mg ORAL DAILY 10/05/23 10/05/23 carvediloL [Coreg] 4 tab PO DAILY 10/05/23 10/05/23 cloNIDine 0.3 MG PATCH 1 each TOP Q7D 10/05/23 10/05/23 [[id number]] - Allergies Allergies/Adverse Reactions: Allergies Allergy/AdvReac Type Severity Reaction Status Date / Time No Known Drug Allergies Allergy Verified 10/05/23 10:04 - Social History Does the pt smoke?: No Smoking Status: Never smoker Does the pt drink ETOH?: No Does the pt have substance abuse?: No - Immunizations Immunizations are current?: Yes PD ED PE NORMAL - General General: Alert and oriented X 3, No acute distress, Well developed/nourished - HEENT HEENT: Atraumatic, Moist mucous membranes, Pharynx benign - Neck Neck: Supple, no meningeal sign - Cardiac Cardiac: RRR, Strong equal pulses - Respiratory Respiratory: No respiratory distress, Clear bilaterally - Abdomen Abdomen: Normal bowel sounds, Soft, Non distended, Other (Right lower quadrant abdominal tenderness) - Derm Derm: Warm and dry - Neuro Neuro: Normal speech Results - Vitals Vitals: Vital Signs - 24 hr 10/05/23 10/05/23 10/05/23 10:06 12:35 14:38 Temperature 36.7 C 36.8 C Heart Rate 75 74 83 Respiratory 16 17 16 Rate Blood Pressure 146/72 H 146/73 H 128/114 H O2 Saturation 97 97 98 Oxygen O2 Source Room air - Labs Labs: Laboratory Tests 10/05/23 10/05/23 10/05/23 10:30 10:30 10:35 WBC 12.3 H RBC 4.16 L Hgb 13.4 Hct 40.7 MCV 97.8 MCH 32.2 H MCHC 32.9 RDW 12.9 Plt Count 310 MPV 9.4 Neut # (Auto) 10.0 H Lymph # (Auto) 0.6 L Nance # (Auto) 1.3 H Eos # (Auto) 0.2 Baso # (Auto) 0.0 Absolute Nucleated RBC 0.00 Nucleated RBC % 0.0 Sodium 134 L Potassium 3.9 Chloride 99 L Carbon Dioxide 28 Anion Gap 7.0 BUN 45 H Creatinine 1.3 Estimated GFR (MDRD) 39 L Glucose 121 H Lactic Acid Calcium 9.6 Total Bilirubin 0.6 AST 12 ALT 11 Alkaline Phosphatase 73 Total Protein 6.7 Albumin 3.6 Globulin 3.1 Albumin/Globulin Ratio 1.2 Lipase 24 Urine Color YELLOW Urine Clarity CLEAR Urine pH 5.5 Ur Specific [place]co 1.015 Urine Protein 30 H Urine Glucose (UA) NEGATIVE Urine Ketones NEGATIVE Urine Occult Blood NEGATIVE Urine Nitrite NEGATIVE Urine Bilirubin NEGATIVE Urine Urobilinogen 0.2 (NORMAL) Ur Leukocyte Esterase NEGATIVE Urine RBC 0-5 Urine WBC 0-3 Ur Squamous Epith Cells FEW Squamous Amorphous Sediment Few Urine Bacteria Few Urine Casts 3-5 Hyaline Casts Ur Microscopic Review INDICATED Urine Culture Comments NOT INDICATED 10/05/23 14:02 WBC RBC Hgb Hct MCV MCH MCHC RDW Plt Count MPV Neut # (Auto) Lymph # (Auto) Nance # (Auto) Eos # (Auto) Baso # (Auto) Absolute Nucleated RBC Nucleated RBC % Sodium Potassium Chloride Carbon Dioxide Anion Gap BUN Creatinine Estimated GFR (MDRD) Glucose Lactic Acid 0.9 Calcium Total Bilirubin AST ALT Alkaline Phosphatase Total Protein Albumin Globulin Albumin/Globulin Ratio Lipase Urine Color Urine Clarity Urine pH Ur Specific [place] Urine Protein Urine Glucose (UA) Urine Ketones Urine Occult Blood Urine Nitrite Urine Bilirubin Urine Urobilinogen Ur Leukocyte Esterase Urine RBC Urine WBC Ur Squamous Epith Cells Amorphous Sediment Urine Bacteria Urine Casts Ur Microscopic Review Urine Culture Comments PD Medical Decision Making - ED course Complexity details: reviewed results, re-evaluated patient, d/w patient, d/w family ED course: Patient is an 88-year-old female presenting for evaluation of 5-day history of right lower quadrant abdominal pain. She did have an episode of nausea and vomiting on Wednesday. She has had a decreased appetite since then but has been tolerating p.o. with breakfast this morning. No fevers. Normal bowel movement this morning. Has had prior hysterectomy. CBC with mild leukocytosis. Chemistries unrevealing. Urine is negative for infection. CT scan of the abdomen pelvis was obtained which I also reviewed. There are findings of multiple abscesses in the right lower quadrant from a perforated appendicitis versus diverticulitis versus less likely gynecologic origin. I did review the case with Dr. Andrew and she agrees that patient should be at a facility with IR capabilities for CT-guided drainage. Unfortunately we do not have those capabilities at this time. Patient was started on IV Zosyn. She declines pain medications. She remains in the emergency department at time of shift change and is signed out to oncoming provider pending transfer to facility with IR capabilities. [id number] - Discussed with Dr. Carbajal. Would recommend IR drainage. Unfortunately at this time our CT machine is located in a mobile trailer and we do not have capabilities for IR procedures that are CT-guided. She would recommend transfer. Departure - Departure Disposition: Transfer Acute Care Hosp Clinical Impression: Intra-abdominal abscess Condition: Good Forms: PCP List
--- NOTE | 2023-10-05 13:27 | CT Report ---
PROCEDURE: ABDOMEN/PELVIS W INDICATIONS: R sided abd pain CONTRAST: 100ml omni 300 TECHNIQUE: After the administration of contrast, 5 mm thick sections acquired from the diaphragms to the symphys is. 5 mm thick coronal and sagittal reformats were acquired. For radiation dose reduction, the foll owing was used: automated exposure control, adjustment of mA and/or kV according to patient size. COMPARISON: None FINDINGS: Image quality: Excellent. Lung bases and heart: Unremarkable. Liver: No solid mass. Gallbladder and biliary tree: Spleen: No splenomegaly. Pancreas: No pancreatic ductal dilation. Adrenals: No adrenal nodule. Kidneys and ureters: No hydronephrosis. No renal cystic lesion which requires follow up. No solid mas s. Bowel and peritoneum: No bowel distension. No pathologic free fluid. Moderate-sized hiatal hernia. Ex tensive diverticulosis of the entire colon. In the right pelvis there are 3 rim-enhancing fluid colle ctions suspicious for abscesses measuring 2.6 x 1.9 cm and 4.4 x 2.4 cm and 2.2 x 1.7 cm, the first t ube which are enveloped by bowel. Surrounding inflammatory changes occupy the right lower quadrant an d right pelvis. Lymph nodes: No central or retroperitoneal adenopathy. Vessels: No infrarenal aortic aneurysm. PELVIS Reproductive organs: Unremarkable. Bladder: No abnormal wall thickening, accounting for underdistension. Pelvic lymph nodes: No pelvic adenopathy by size criteria. Bones: No aggressive osseous abnormality. Other: No significant ventral or inguinal hernia. IMPRESSION: 1. Abnormal segment of the cecum and proximal right colon with 3 separate adjacent fluid collections consistent with abscesses. Differential diagnosis includes perforated appendicitis, diverticulitis, o r less likely a gynecological origin. Neoplasm is also possible but less likely. 2. Extensive diverticulosis in the entire colon. 3. Large hiatal hernia. Reviewed by: Bret Pandya on 10/05/2023 12:26 PM [facility]UST Approved by: Bret Pandya on 10/05/2023 12:26 PM RUST Station ID: [id number]
[2023-10-05] MEDS ORDERED: PIPERACILLIN/TAZOBACTAM 3.375 GM in SODIUM CHLORIDE 0.9% MINIBAG 100 ML IV STA (13:38)
[2023-10-05] MEDS ORDERED: iohexoL-300 100 ML VIAL IVP ONE (13:52)
[2023-10-05] MEDS ORDERED: ONDANSETRON 4 MG/2 ML VIAL IVP PRN ×2 (14:41→16:28)
[2023-10-05] MEDS ORDERED: ACETAMINOPHEN 500 MG TABLET PO PRN ×2 (14:41→18:18)
--- NOTE | 2023-10-05 15:17 | ED Physician Documentation ---
ED Addendum - Addendum Addendum: 10/05/23 15:[address] Ford at 3 PM shift change. Briefly 88-year-old woman with hypertension, not anticoagulated with history of hysterectomy who presented with few days of right lower quadrant pain, hemodynamics normal, and a white count of 12. Found to have 3 abscesses on the right side. At the time of shift change we are pending a call back from [facility] for evaluation for potential transfer for IR. At this time I spoke with Dr. Su, surgeon there who revi ewed the images and understands from their IR service they already have reviewed the images and feel she is not drainable via IR and defers back to our surgeon for treatment. I spoke with Dr. Andrew at this time who will evaluate the images. 10/05/23 15:28 I spoke with our surgeon, Dr. Andrew who reviewed the images and would like to discuss directly with the interventional radiologist and the health director of community services is coordinating joint phone call between them. 10/05/23 15:47 Dr. Andrew contacted me and has discussed with the interventional radiologist, Dr. Page at [facility]. I was not privy to that conversation but I am told that Dr. Andrew is now admitting the patient here. Disposition: Admitted to [facility] Condition: Stable
[2023-10-05] MEDS ORDERED: SODIUM CHLORIDE FLUSH 0.9% 10 ML SYRINGE IVP PRN (16:28)
[2023-10-05] MEDS ORDERED: MORPHINE 2 MG/ML CARPUJECT IVP PRN (16:28)
[2023-10-05] MEDS ORDERED: IBUPROFEN 400 MG TABLET PO PRN (16:28)
[2023-10-05] MEDS ORDERED: oxyCODONE 5 MG TABLET PO PRN (16:28)
--- NOTE | 2023-10-05 16:47 | SURGERY HX AND PHYSICAL(T) ---
Surgical History & Physical - Chief Complaint/HPI Chief Complaint: I don't feel well History of Present Illness: The patient reports being in her normal state of health as recently as last , . On Wednesday, the patient reports she had an episode of vomiting and began having crampy right lower quadrant abdominal pain. Her pain has continued and slowly worsened over the last several days. She has not had any further nausea or vomiting, but does report a decreased appetite. She thought she may be constipated and took laxatives on Wednesday and Wednesday which caused her to have several bowel movements. She has not had any diarrhea or blood in her stool. She feels like her pain is worse with palpation and activity, but does not change with time of day, p.o. intake, or bowel movements. She denies any fevers or chills. She denies any chest pain or shortness of breath. She denies any history of similar pain in the past. The patient's only previous abdominal surgery is a hysterectomy. She does not know if her appendix was removed at that time. The patient lives alone on property owned by her son and [id number], and has 3 children that live close by and are available to help her as needed. 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 Urinary: None Musculoskeletal: Osteoarthritis Blood Disorders: None Psychiatric: Depression General: Colonoscopy (Greater than 10 years ago) Orthopedic: Spine surgery PSH Other: Hysterectomy Smoking Status: Never smoker Does the pt drink ETOH?: No Does the pt have substance abuse?: No - Family Hx Family Hx: Other (Noncontributory, the patient specifically denies any family history of colon cancer.) - Home Meds and Allergies Home Medications: Acetaminophen [Tylenol] 1,000 mg PO TID 10/05/23 Amitriptyline [Elavil] 10 mg PO HS 10/05/23 Ferrous Sulfate [Feosol] 325 mg PO DAILY 10/05/23 Losartan Potassium 100 mg PO DAILY 10/05/23 Sucralfate [Carafate] 1 tablet PO HS 10/05/23 Thyroid,Pork [[place] Thyroid] 30 mg ORAL DAILY 10/05/23 Verapamil ER [Calan SA] 120 mg ORAL DAILY 10/05/23 carvediloL [Coreg] 4 tab PO DAILY 10/05/23 cloNIDine 0.3 MG PATCH [Bwshlybe-Lau-1] 1 each TOP Q7D 10/05/23 Allergies/Adverse Reactions: Allergies Allergy/AdvReac Type Severity Reaction Status Date / Time No Known Drug Allergies Allergy Verified 10/05/23 10:04 - Review of Systems Constitutional: Other (A complete 10 point review of symptoms is otherwise negative except for that noted in HPI and PMH.) - Vital Signs Heart Rate: 83 Blood Pressure: 128/114 Temperature: 36.8 C Respiratory Rate: 16 O2 Saturation: 98 Weight (kg): 58.967 kg Height: 1.52 m - Physical Exam Comments/Other: GEN: No acute distress, appears stated age, alert and oriented HEENT: NCAT, MMM, EOMI NEURO: CN II-XII grossly intact, no obvious focal deficits CV: RRR, no murmer appreciated PULM: CTAB, no wheezes appreciated ABD: soft, with exquisite tenderness to palpation in the right lower quadrant, positive voluntary guarding in the right lower quadrant, no rebound, positive Rovsing sign, the remainder of the patient's abdominal exam demonstrates mild tenderness that radiates to the right lower quadrant CIRCULATORY: no clubbing, cyanosis, or edema SKIN: no lesions appreciated LYMPH: no obvious lymphadenopathy MSK: 4/4 strength in all extremities PSYCH: Affect is appropriate - Patient Review Patient Review: Problems were reviewed with the patient during this visit. Medications were reviewed with the patient during this visit. Allergies were reviewed this patient during this visit. Pertinent Tests Reviewed: All pertitent test for this patient were reviewed. - Assessment & Plan Assessment and Plan: This is an 88-year-old female with: 1. Perforated appendicitis versus perforated right-sided diverticulitis - patient is unsure if she had appendectomy at time of hysterectomy. I personally interpreted the images, and reviewed the report from the patient's CT scan done earlier today. It demonstrates inflammation of the right colon and 3 rim-enhancing fluid collections measuring 2.6 x 1.9, 4.4 x 2.4, and 2.2 x 1.7 cm. The patient is noted to have pandiverticulosis of the colon. Her appendix is not visualized. There is no free air. The largest of these is more superior and posterior than the others. The smaller fluid collections are located in areas not amenable to percutaneous drainage. She is also noted to have a large hiatal hernia. -I spoke with Dr. Ruy Lucas of interventional radiology in [place] regarding this patient's CT scan. He feels the 2 smaller fluid collections are not amenable to drainage due to their location, and the larger one is borderline drainable, and close to vessels. -I discussed the above findings with the patient and her [id number] at bedside. We discussed options including observation alone, antibiotics, laparoscopic drainage, percutaneous drainage, and open surgery with bowel resection. At this time, I recommend a trial of IV antibiotics with close monitoring. If the patient improves, and her pain resolves, I would consider transition to oral antibiotics. If she improves without complete resolution of pain, I would recommend repeat CT scan in 3 to 5 days. If the patient worsens, she may require surgical intervention. The patient voiced understanding and is agreeable to IV antibiotics at this time. -The patient is tolerating a diet, and I have written for a soft diet. I will also ask our pleat taper to consult regarding supplementation to help keep her nutrition as good as possible during this time that she has a decreased appetite in anticipation that she may have a decreased appetite for some time, and may possibly require surgery. -The patient is a higher than average risk surgical candidate given her advanced age, and multiple comorbidities. -I will admit the patient to the Medr floor, and monitor her labs and vitals closely. Multimodal pain approach has been ordered. The patient notes that she has nausea with narcotics, and would like to avoid these if possible. I did discuss the possibility of requiring transfer for possible IR drainage and possible surgery, if needed. 2. Hypertension, hypothyroidism, depression, GERD, osteoarthritis The patient's home medications have been restarted. I have requested consultation from our hospitalist team, Dr. Bolivar, given the patient's geriatric status and multiple comorbidities, and appreciate her input in the care of this patient.
[2023-10-05] MEDS: ACETAMINOPHEN 325 MG TABLET PO SCH ×2 (16:52→21:13)
[2023-10-05] MEDS: SODIUM CHLORIDE FLUSH 0.9% 10 ML SYRINGE IVP SCH (16:54)
--- NOTE | 2023-10-05 17:22 | CONSULTATION NOTE ---
Referring Provider Name of Referring Provider:: Dr Andrew Consult Date: 10/05/23 Chief Complaint - Chief Complaint Chief Complaint: ABd pain History of Present Illness - Admitted From Admitted From:: ED - History Obtained From History obtained from: Dr Andrew and the patient - History of Present Illness HPI Comment/Other: This is an 88-year-old female with a history of hypertension, GERD, depression, osteoarthritis. There is a remote history of diverticulitis, per the daughter. She lives alone but one of her children stays with her each night since she lives on their [place] [address] [place]. The patient presented to the ER with complaint of 4 days of worsening mid and right lower quadrant abdominal pain, and 1 episode of nausea and vomiting 4 days ago. She denies diarrhea or fever or chills. The work-up in the ER with CT imaging shows that she has 3 small abscesses near the right colon. Our surgeon was contacted by the ED. The surgeon then spoke to IR (at a different facility, since we have no CT only a portable CT now, and cannot do IR abscess drainage), who said the abscesses are too small for IR drainage, the patient will be admitted here and the surgeon spoke to me. The Hospitalist service is requested in consultation to help manage her comorbidities. Patient is ordered to get Zosyn. Patient told me that she gets nausea and vomiting with narcotics. I spoke to her about her CODE BLUE wishes and she wants to be a Full Code. The daughter at bedside, said she will bring in her advance directive tomorrow. 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 One of her children comes to stay with her each night. She does not smoke cigarettes and never did. She drinks no alcohol. She uses no drugs. She no longer drives a car. - Substance History Use: Uses substance without health or social issues: NONE Meds/Allgy - Home Medications Home Medications: Ambulatory Orders Medication Instructions Recorded Confirmed Acetaminophen [Tylenol] 1,000 mg PO TID 10/05/23 10/05/23 Amitriptyline [Elavil] 10 mg PO HS 10/05/23 10/05/23 Ferrous Sulfate [Feosol] 325 mg PO DAILY 10/05/23 10/05/23 Losartan Potassium 100 mg PO DAILY 10/05/23 10/05/23 Sucralfate [Carafate] 1 tablet PO HS 10/05/23 10/05/23 Thyroid,Pork [[place] Thyroid] 30 mg ORAL DAILY 10/05/23 10/05/23 Verapamil ER [Calan SA] 120 mg ORAL DAILY 10/05/23 10/05/23 carvediloL [Coreg] 4 tab PO DAILY 10/05/23 10/05/23 cloNIDine 0.3 MG PATCH 1 each TOP Q7D 10/05/23 10/05/23 [[id number]-2] - Allergies Allergies/Adverse Reactions: Allergies Allergy/AdvReac Type Severity Reaction Status Date / Time No Known Drug Allergies Allergy Verified 10/05/23 10:04 Review of Systems - Gastrointestinal Gastrointestinal: reports: Nausea (She is nauseated after getting narcotics.), Vomiting (She vomited 4 days ago at the onset of this abdominal pain) - Musculoskeletal Musculoskeletal: reports: Joint pain (She has arthritis pain for which she takes scheduled Tylenol 1000 mg 3 times daily) - All Other Systems All Other Systems: reports: Reviewed and negative Exam - Vital Signs Vital Signs: Vital Signs x48h Temp Pulse Resp BP Pulse Ox 10/05/23 17:01 36.8 C 83 16 128/114 H 98 10/05/23 14:38 36.8 C 83 16 128/114 H 98 10/05/23 12:35 74 17 146/73 H 97 10/05/23 10:06 36.7 C 75 16 146/72 H 97 - Physical Exam General Appearance: positive: No acute distress (She appears comfortable, is sup ine in bed, however rates her current abdominal pain at 8/10), Alert Eyes Bilateral: positive: Normal inspection, No lid inflammation ENT: positive: ENT inspection nml, No signs of dehydration Neck: positive: Nml inspection, No JVD Respiratory: positive: No respiratory distress, Breath sounds nml Cardiovascular: positive: Regular rate & rhythm, No murmur Abdomen: positive: Nml bowel sounds, No distention, Tenderness (Tender to mild palpation in the right lower quadrant and across the entire mid abdomen) Skin: positive: Warm, Dry Extremities: positive: Non-tender, No pedal edema Neurologic/Psychiatric: positive: Oriented x3, Motor nml Conclusion/Plan - Problem List (1) Colonic diverticular abscess Conclusion/Plan: Since there are 3 separate areas, this is unlikely to be a burst appendix but most likely to be from multiple diverticuli Plan: Agree with IV Zosyn and pain meds as needed. She cannot receive narcotics which cause her N/V. Further diet, fluid orders, and any surgical management, will be as per General Surgery. Dr Andrew spoke to me about the plan which is to start with conservative management with iv antibx. The pt is felt to be a higher than acceptable surgical risk, so she would need transfer to a larger facility for IR management, if she worsens, per the Srgeon. Follow WBC daily (2) HTN (hypertension) Conclusion/Plan: Plan: Since the patient is not n.p.o., and is ordered to be on a diet, her oral BP meds may be continued I will order the BP meds and write parameters for when they should be on hold. (3) Hypothyroidism Conclusion/Plan: Plan: Check her TSH to assure she is on a adequate thyroid dose Continue oral thyroid medication at 0700 daily (4) GERD (gastroesophageal reflux disease) Conclusion/Plan: CT abdomen showed a large hiatal hernia and the patient has a history of GERD Plan: Patient should be on either Pepcid or Protonix Also continue her hs Sucralfate - Lab Results Fish Bones: 10/05/23 10:30 10/05/23 10:30 - Diagnostic Imaging Results Diagnostic Imaging Results: positive: Final report reviewed - Other Other Results/Comments: Attestation: The patient is expected to be hospitalized for greater than 2 midnights and is expected to be discharged or transferred to another facility within 96 hours: Yes.
[2023-10-05] MEDS ORDERED: PIPERACILLIN/TAZOBACTAM 3.375 GM in SODIUM CHLORIDE 0.9% MINIBAG 100 ML IV SCH (18:00)
[2023-10-05] MEDS: PIPERACILLIN/TAZOBACTAM 3.375 GM in SODIUM CHLORIDE 0.9% MINIBAG 100 ML IV SCH (18:54)
[2023-10-05] MEDS ORDERED: cloNIDine 0.2 MG PATCH TOP SCH (19:00)
[2023-10-05] MEDS ORDERED: cloNIDine 0.1 MG PATCH TOP SCH (19:00)
[2023-10-05] MEDS ORDERED: AMITRIPTYLINE 10 MG TABLET PO SCH (21:00)
[2023-10-05] MEDS: AMITRIPTYLINE 10 MG TABLET PO SCH (21:14)
[2023-10-05] MEDS: SUCRALFATE 1 GM/10 ML UDC PO SCH (21:14)
[2023-10-05] MEDS: carvediloL 12.5 MG TABLET PO SCH (21:14)
[2023-10-06] MEDS: ACETAMINOPHEN 325 MG TABLET PO SCH ×6 (01:45→20:30)
[2023-10-06] MEDS: PIPERACILLIN/TAZOBACTAM 3.375 GM in SODIUM CHLORIDE 0.9% MINIBAG 100 ML IV SCH ×3 (01:50→17:58)
[2023-10-06] MEDS: SODIUM CHLORIDE FLUSH 0.9% 10 ML SYRINGE IVP SCH ×3 (01:53→16:06)
[2023-10-06 06:00] LABS: BASOPHILS % (AUTO) 0.4 %; EOSINOPHILS # (AUTO) 0.3 10^3/uL (0.0-0.7); EOSINOPHILS % (AUTO) 2.9 %; HCT - HEMATOCRIT 36.3 % (37.0-47.0); HGB - HEMOGLOBIN 11.8 g/dL (12.0-16.0); LYMPHOCYTES # (AUTO) 0.8 10^3/uL (1.5-3.5); LYMPHOCYTES % (AUTO) 7.4 %; MEAN CORPUSCULAR HEMOGLOBIN 32.2 pg (27.0-31.0); MEAN CORPUSCULAR HGB CONC 32.5 g/dL (32.0-36.0); MEAN CORPUSCULAR VOLUME 99.2 fL (81.0-99.0); MEAN PLATELET VOLUME 9.4 fL (7.9-10.8); MONOCYTES # (AUTO) 1.3 10^3/uL (0.0-1.0); MONOCYTES % (AUTO) 11.8 %; NEUTROPHILS # (AUTO) 8.3 10^3/uL (1.5-6.6); NEUTROPHILS % (AUTO) 76.7 %; PLT - PLATELET COUNT 295 10^3/uL (130-450); RED BLOOD COUNT 3.66 10^6/uL (4.20-5.40); RED CELL DISTRIBUTION WIDTH 12.9 % (12.0-15.0); WHITE BLOOD COUNT 10.8 x10^3/uL (4.8-10.8)
[2023-10-06 06:24] LABS: CALCIUM 8.5 mg/dL (8.5-10.3); CREATININE 1.1 mg/dL (0.6-1.3); MAGNESIUM 1.4 mg/dL (1.7-2.3); POTASSIUM 3.8 mmol/L (3.5-4.5)
[2023-10-06] MEDS: THYROID 60 MG TABLET PO SCH (06:44)
[2023-10-06] MEDS: PANTOPRAZOLE 40 MG TABLET PO SCH (06:44)
[2023-10-06] MEDS ORDERED: THYROID 60 MG TABLET PO SCH (07:00)
[2023-10-06] MEDS ORDERED: PANTOPRAZOLE 40 MG TABLET PO SCH (07:00)
[2023-10-06] MEDS: carvediloL 12.5 MG TABLET PO SCH ×2 (08:30→20:43)
[2023-10-06] MEDS: LOSARTAN 50 MG TABLET PO SCH (08:30)
[2023-10-06] MEDS: VERAPAMIL ER 120 MG TABLET PO SCH (08:30)
[2023-10-06] MEDS: MAGNESIUM OXIDE 400 MG TABLET PO SCH ×2 (08:37→16:19)
--- NOTE | 2023-10-06 08:42 | PROVIDER PROGRESS NOTE ---
Subjective - General Admit Date: 10/05/23 - Review of Systems General: negative: Fever Cardiovascular: negative: Chest pain Gastrointestinal: negative: Nausea, Vomiting All Other Systems: positive: Reviewed and negative - Other Other Information/Narrative: Patient eating breakfast this morning, states appetite is still less than normal (this is the first food she's had since yesterday AM and feeling full after eating about 30% of meal). No n/v. +void, +flatus, no BM since admission. +ambulation. Patient states she feels "about the same" as yesterday on initial assessment, but states pain is "about 3/10" with palpation where it was "at least a 9" yesterday PM. Objective - Patient Data Reviewed Vital Signs: Yes Vital Signs: Vital Signs x48h Temp Pulse Resp BP Pulse Ox 10/06/23 07:51 36.7 C 70 16 153/67 H 100 10/06/23 04:10 36.4 C L 76 18 161/70 H 100 Weight: Weight 10/04/23 10/05/23 10/06/23 23:59 23:59 23:59 Weight (kg) 58 kg 58 kg Intake & Output: Intake and Output Totals x24h 10/04/23 10/05/23 10/06/23 23:59 23:59 23:59 Intake Total 1300 400 Output Total 200 Balance 1100 400 - Lab Results Lab Results: 10/06/23 05:28 10/06/23 05:28 Other Lab Results: Lab Results x24hrs 10/06/23 10/06/23 10/05/23 Range/Units 05:28 05:28 14:02 WBC 10.8 (4.8-10.8) x10^3/uL RBC 3.66 L (4.20-5.40) 10^6/uL Hgb 11.8 L (12.0-16.0) g/dL Hct 36.3 L (37.0-47.0) % MCV 99.2 H (81.0-99.0) fL MCH 32.2 H (27.0-31.0) pg MCHC 32.5 (32.0-36.0) g/dL RDW 12.9 (12.0-15.0) % Plt Count 295 (130-450) 10^3/uL MPV 9.4 (7.9-10.8) fL Neut # (Auto) 8.3 H (1.5-6.6) 10^3/uL Lymph # (Auto) 0.8 L (1.5-3.5) 10^3/uL Yates # (Auto) 1.3 H (0.0-1.0) 10^3/uL Eos # (Auto) 0.3 (0.0-0.7) 10^3/uL Baso # (Auto) 0.0 (0.0-0.1) 10^3/uL Absolute Nucleated RBC 0.00 x10^3/uL Nucleated RBC % 0.0 /100WBC Sodium 137 (135-145) mmol/L Potassium 3.8 (3.5-4.5) mmol/L Chloride 105 (101-111) mmol/L Carbon Dioxide 26 (21-32) mmol/L Anion Gap 6.0 (6-13) BUN 31 H (6-20) mg/dL Creatinine 1.1 (0.6-1.3) mg/dL Estimated GFR (MDRD) 47 L (>89) Glucose 78 (74-104) mg/dL Lactic Acid 0.9 (0.5-2.2) mmol/L Calcium 8.5 (8.5-10.3) mg/dL Magnesium 1.4 L (1.7-2.3) mg/dL Total Bilirubin (0.2-1.0) mg/dL AST (10-42) IU/L ALT (10-60) IU/L Alkaline Phosphatase (42-121) IU/L Total Protein (6.4-8.9) g/dL Albumin (3.2-5.5) g/dL Globulin (2.1-4.2) g/dL Albumin/Globulin Ratio (1.0-2.2) Lipase (11-82) U/L Urine Color Urine Clarity (CLEAR) Urine pH (5.0-7.5) PH Ur Specific [place] (1.002-1.030) Urine Protein (NEGATIVE) mg/dL Urine Glucose (UA) (NEGATIVE) mg/dL Urine Ketones (NEGATIVE) mg/dL Urine Occult Blood (NEGATIVE) Urine Nitrite (NEGATIVE) Urine Bilirubin (NEGATIVE) Urine Urobilinogen (NORMAL) E.U./dL Ur Leukocyte Esterase (NEGATIVE) Urine RBC (0-5) /HPF Urine WBC (0-5) /HPF Ur Squamous Epith Cells (<= Few) Amorphous Sediment /LPF Urine Bacteria (None Seen) /HPF Urine Casts /LPF Ur Microscopic Review Urine Culture Comments 10/05/23 10/05/23 10/05/23 Range/Units 10:35 10:30 10:30 WBC 12.3 H (4.8-10.8) x10^3/uL RBC 4.16 L (4.20-5.40) 10^6/uL Hgb 13.4 (12.0-16.0) g/dL Hct 40.7 (37.0-47.0) % MCV 97.8 (81.0-99.0) fL MCH 32.2 H (27.0-31.0) pg MCHC 32.9 (32.0-36.0) g/dL RDW 12.9 (12.0-15.0) % Plt Count 310 (130-450) 10^3/uL MPV 9.4 (7.9-10.8) fL Neut # (Auto) 10.0 H (1.5-6.6) 10^3/uL Lymph # (Auto) 0.6 L (1.5-3.5) 10^3/uL [place] # (Auto) 1.3 H (0.0-1.0) 10^3/uL Eos # (Auto) 0.2 (0.0-0.7) 10^3/uL Baso # (Auto) 0.0 (0.0-0.1) 10^3/uL Absolute Nucleated RBC 0.00 x10^3/uL Nucleated RBC % 0.0 /100WBC Sodium 134 L (135-145) mmol/L Potassium 3.9 (3.5-4.5) mmol/L Chloride 99 L (101-111) mmol/L Carbon Dioxide 28 (21-32) mmol/L Anion Gap 7.0 (6-13) BUN 45 H (6-20) mg/dL Creatinine 1.3 (0.6-1.3) mg/dL Estimated GFR (MDRD) 39 L (>89) Glucose 121 H (74-104) mg/dL Lactic Acid (0.5-2.2) mmol/L Calcium 9.6 (8.5-10.3) mg/dL Magnesium (1.7-2.3) mg/dL Total Bilirubin 0.6 (0.2-1.0) mg/dL AST 12 (10-42) IU/L ALT 11 (10-60) IU/L Alkaline Phosphatase 73 (42-121) IU/L Total Protein 6.7 (6.4-8.9) g/dL Albumin 3.6 (3.2-5.5) g/dL Globulin 3.1 (2.1-4.2) g/dL Albumin/Globulin Ratio 1.2 (1.0-2.2) Lipase 24 (11-82) U/L Urine Color YELLOW Urine Clarity CLEAR (CLEAR) Urine pH 5.5 (5.0-7.5) PH Ur Specific [place] 1.015 (1.002-1.030) Urine Protein 30 H (NEGATIVE) mg/dL Urine Glucose (UA) NEGATIVE (NEGATIVE) mg/dL Urine Ketones NEGATIVE (NEGATIVE) mg/dL Urine Occult Blood NEGATIVE (NEGATIVE) Urine Nitrite NEGATIVE (NEGATIVE) Urine Bilirubin NEGATIVE (NEGATIVE) Urine Urobilinogen 0.2 (NORMAL) (NORMAL) E.U./dL Ur Leukocyte Esterase NEGATIVE (NEGATIVE) Urine RBC 0-5 (0-5) /HPF Urine WBC 0-3 (0-5) /HPF Ur Squamous Epith Cells FEW Squamous (<= Few) Amorphous Sediment Few /LPF Urine Bacteria Few (None Seen) /HPF Urine Casts 3-5 Hyaline Casts /LPF Ur Microscopic Review INDICATED Urine Culture Comments NOT INDICATED - Current Medications Current Medications: Current Medications Generic Name Dose Route Start Last Admin Trade Name Freq PRN Reason Stop Dose Admin Acetaminophen 650 mg 10/05/23 17:00 10/06/23 08:31 Acetaminophen 325 Mg Tablet PO Not Given Q4HR MARK ANTHONY Acetaminophen 1,000 mg 10/05/23 18:18 10/06/23 06:41 Acetaminophen 500 Mg Tablet PO 1,000 mg TID PRN Administration Pain or Fever > 38C (100.4F) Amitriptyline HCl 10 mg 10/05/23 21:00 10/05/23 21:14 Amitriptyline 10 Mg Tablet PO 10 mg HS MARK ANTHONY Administration Carvedilol 12.5 mg 10/05/23 21:00 10/06/23 08:30 Carvedilol 12.5 Mg Tablet PO 12.5 mg BID MARK ANTHONY Administration Clonidine HCl 1 patch 10/05/23 19:00 10/05/23 21:12 Clonidine 0.1 Mg Patch TOP Not Given Q7D MARK ANTHONY Clonidine HCl 1 patch 10/05/23 19:00 10/05/23 21:12 Clonidine 0.2 Mg Patch TOP Not Given Q7D MARK ANTHONY Piperacillin Sod/Tazobactam 100 mls @ 25 mls/hr 10/05/23 18:00 10/06/23 06:39 Sod 3.375 gm/ Sodium Chloride IV Infused Q8H MARK ANTHONY Infusion Losartan Potassium 100 mg 10/06/23 09:00 10/06/23 08:30 Losartan 50 Mg Tablet PO 100 mg DAILY MARK ANTHONY Administration Magnesium Oxide 800 mg 10/06/23 09:00 10/06/23 08:37 Magnesium Oxide 400 Mg Tablet PO 800 mg BIDWM MARK ANTHONY Administration Ondansetron HCl 4 mg 10/05/23 16:28 10/05/23 22:11 Ondansetron 4 Mg/2 Ml Vial IVP 4 mg Q6HR PRN Administration Nausea / Vomiting Pantoprazole Sodium 40 mg 10/06/23 07:00 10/06/23 06:44 Pantoprazole 40 Mg Tablet PO 40 mg QDAC MARK ANTHONY Administration Sodium Chloride 10 ml 10/05/23 17:00 10/06/23 08:30 Sodium Chloride Flush 0.9% 10 Ml Syringe IVP 10 ml 0100,0900,1700 MARK ANTHONY Administration Sucralfate 1 gm 10/05/23 21:00 10/05/23 21:14 Sucralfate 1 Gm/10 Ml Udc PO 1 gm HS MARK ANTHONY Administration Thyroid 30 mg 10/06/23 07:00 10/06/23 06:44 Thyroid 60 Mg Tablet PO 30 mg QDAC MARK ANTHONY Administration Verapamil HCl 120 mg 10/06/23 09:00 10/06/23 08:30 Verapamil Er 120 Mg Tablet PO 120 mg DAILY MARK ANTHONY Administration - Physical Exam General Appearance: positive: No acute distress, Alert Eyes Bilateral: positive: Normal inspection, PERRL, EOMI ENT: positive: No signs of dehydration Neck: positive: Trachea midline Respiratory: positive: No respiratory distress, Breath sounds nml, Other (CTAB) Cardiovascular: positive: Regular rate & rhythm, No murmur Abdomen: positive: Tenderness (mild RLQ ttp, otherwise non tender). negative: No distention (mild distension), Guarding, Rebound Skin: positive: No rash Extremities: positive: Non-tender, Full ROM Neurologic/Psychiatric: positive: Oriented x3 Impression/Plan - Problem List Problem List: This is an 88-year-old female with: 1. Perforated appendicitis versus perforated right-sided diverticulitis - ? prior appy. - CT 10/05 shows three fluid collections measuring, 2.6 x 1.9, 4.4 x 2.4, and 2.2 x 1.7 cm, pandiverticulosis, no visualized appendix, no free air. Fluid collections not amenable to IR drainage per Dr. Lucas of IR in [place]. - leukocytosis has resolved. Tolerating regular diet. - Pain improving with IV antibiotics (on zosyn). If the patient her pain resolves, I would consider transition to oral antibiotics. If she improves without complete resolution of pain, I would recommend repeat CT scan 3 to 5 d ays after previous study. If the patient worsens, she may require percutaneous drain placement and/or surgical intervention. Patient is higher than average risk surgical candidate given her advanced age and comorbidities. - Plan to continue IV abx, multimodal pain approach - SCD's for DVT ppx 2. Hypertension, hypothyroidism, depression, GERD, osteoarthritis The patient's home medications have been restarted. Patient is followed by the hospitalist team, Dr. Bolivar, for her comorbidities and I appreciate her input in the care of this patient.
[2023-10-06] MEDS ORDERED: VERAPAMIL ER 120 MG TABLET PO SCH (09:00)
[2023-10-06] MEDS ORDERED: carvediloL 12.5 MG TABLET PO SCH (09:00)
[2023-10-06] MEDS ORDERED: LOSARTAN 50 MG TABLET PO SCH (09:00)
--- NOTE | 2023-10-06 10:40 | PROVIDER PROGRESS NOTE ---
Assessment/Plan - Problem List (1) Colonic diverticular abscess Assessment/Plan: Since there are 3 separate areas, this is unlikely to be a burst appendix but most likely to be from multiple diverticuli Plan: Agree with IV Zosyn and pain meds as needed. She cannot receive narcotics which cause her N/V. Further diet, fluid orders, and any surgical management, will be as per General Surgery. Cont with conservative management with iv antibx. The pt is felt to be a higher than acceptable surgical risk, so she would need transfer to a larger facility for IR management, if she worsens, per the Surgeon. Follow WBC daily (2) Prerenal azotemia Conclusion/Plan: BUN/creatinine were 45/1.3 yesterday at admission, and today are 31/1.1 (All labs were reviewed) Plan: I will start D5 NS at TKO, since her oral intake has been negligible, to improve her prerenal azotemia Avoid nephrotoxins Follow BMP daily (3) Hypomagnesemia Conclusion/Plan: Likely from poor p.o. intake for the last few days Plan: I agree with mMg replacement and follow serum Mg level intermittently (4) HTN (hypertension) Conclusion/Plan: Plan: Since the patient is on a diet, her oral BP meds may be continued. I ordered the BP meds needed and and wrote parameters for when they should be on hold. (5) Hypothyroidism Conclusion/Plan: Her TSH level is pending Plan: Continue her thyroid medication, adjust dose if needed (6) GERD (gastroesophageal reflux disease) Conclusion/Plan: CT abdomen showed a large hiatal hernia and the patient has a history of GERD Plan: Patient should be on either Pepcid or Protonix Also we are continuing her bedtime Sucralfate - Current Meds Current Meds: Current Medications Generic Name Dose Route Start Last Admin Trade Name Freq PRN Reason Stop Dose Admin Acetaminophen 650 mg 10/05/23 17:00 10/06/23 08:31 Acetaminophen 325 Mg Tablet PO Not Given Q4HR MARK ANTHONY Acetaminophen 1,000 mg 10/05/23 18:18 10/06/23 06:41 Acetaminophen 500 Mg Tablet PO 1,000 mg TID PRN Administration Pain or Fever > 38C (100.4F) Amitriptyline HCl 10 mg 10/05/23 21:00 10/05/23 21:14 Amitriptyline 10 Mg Tablet PO 10 mg HS MARK ANTHONY Administration Carvedilol 12.5 mg 10/05/23 21:00 10/06/23 08:30 Carvedilol 12.5 Mg Tablet PO 12.5 mg BID MARK ANTHONY Administration Clonidine HCl 1 patch 10/05/23 19:00 10/05/23 21:12 Clonidine 0.1 Mg Patch TOP Not Given Q7D MARK ANTHONY Clonidine HCl 1 patch 10/05/23 19:00 10/05/23 21:12 Clonidine 0.2 Mg Patch TOP Not Given Q7D MARK ANTHONY Piperacillin Sod/Tazobactam 100 mls @ 25 mls/hr 10/05/23 18:00 10/06/23 06:39 Sod 3.375 gm/ Sodium Chloride IV Infused Q8H MARK ANTHONY Infusion Losartan Potassium 100 mg 10/06/23 09:00 10/06/23 08:30 Losartan 50 Mg Tablet PO 100 mg DAILY MARK ANTHONY Administration Magnesium Oxide 800 mg 10/06/23 09:00 10/06/23 08:37 Magnesium Oxide 400 Mg Tablet PO 800 mg BIDWM MARK ANTHONY Administration Ondansetron HCl 4 mg 10/05/23 16:28 10/05/23 22:11 Ondansetron 4 Mg/2 Ml Vial IVP 4 mg Q6HR PRN Administration Nausea / Vomiting Pantoprazole Sodium 40 mg 10/06/23 07:00 10/06/23 06:44 Pantoprazole 40 Mg Tablet PO 40 mg QDAC MARK ANTHONY Administration Sodium Chloride 10 ml 10/05/23 17:00 10/06/23 08:30 Sodium Chloride Flush 0.9% 10 Ml Syringe IVP 10 ml 0100,0900,1700 MARK ANTHONY Administration Sucralfate 1 gm 10/05/23 21:00 10/05/23 21:14 Sucralfate 1 Gm/10 Ml Udc PO 1 gm HS MARK ANTHONY Administration Thyroid 30 mg 10/06/23 07:00 10/06/23 06:44 Thyroid 60 Mg Tablet PO 30 mg QDAC [facility] Administration Verapamil HCl 120 mg 10/06/23 09:00 10/06/23 08:30 Verapamil Er 120 Mg Tablet PO 120 mg DAILY MARK ANTHONY Administration - Lab Result Fish Bone Diagrams: 10/06/23 05:28 10/06/23 05:28 - Additional Planning My Orders: My Active Orders 10/05/23 18:18 Acetaminophen [Tylenol] 1,000 mg PO TID PRN Code Status [OTHERS] Routine 10/05/23 19:00 cloNIDine 0.1 MG PATCH [[id number]] 1 patch TOP Q7D cloNIDine 0.2 MG PATCH [[id number]] 1 patch TOP Q7D 10/05/23 21:00 Amitriptyline [Elavil] 10 mg PO HS Sucralfate [Carafate] 1 gm PO HS carvediloL [Coreg] 12.5 mg PO BID 10/06/23 07:00 Pantoprazole [Protonix] 40 mg PO QDAC Thyroid [[place] Thyroid] 30 mg PO QDAC 10/06/23 09:00 Losartan [Cozaar] 100 mg PO DAILY Verapamil ER [Calan SA] 120 mg PO DAILY 10/06/23 11:00 Dextrose 5%-0.9% NaCl [D5ns] 1,000 ml IV TKO 10/07/23 05:00 BMP - BASIC METABOLIC PANEL [CHEM] DAILYLAB CBC - COMP BLD CT W/AUTO DIFF [HEME] DAILYLAB 10/08/23 05:00 BMP - BASIC METABOLIC PANEL [CHEM] DAILYLAB CBC - COMP BLD CT W/AUTO DIFF [HEME] DAILYLAB 10/09/23 05:00 BMP - BASIC METABOLIC PANEL [CHEM] DAILYLAB CBC - COMP BLD CT W/AUTO DIFF [HEME] DAILYLAB Subjective - Subjective Patient Reports: Feeling Better (Her abdominal pain has decreased from 8/10 yesterday down to 4/10 today. She is tolerating her diet, denies N/V or diarrhea.) Objective Vital Signs: Vital Signs - 24 hr 10/05/23 10/05/23 10/05/23 12:35 14:38 16:30 Temperature 36.8 C 36.0 C L Heart Rate 74 83 Heart Rate [ 78 Brachial] Respiratory 17 16 18 Rate Blood Pressure 146/73 H 128/114 H Blood Pressure 175/80 H [Brachial artery] O2 Saturation 97 98 100 10/05/23 10/05/23 10/05/23 17:01 17:17 20:30 Temperature 36.8 C 36.7 C Heart Rate 83 79 Heart Rate [ 89 Brachial] Respiratory 16 17 18 Rate Blood Pressure 128/114 H 192/87 H Blood Pressure 182/97 H [Brachial artery] O2 Saturation 98 99 97 10/05/23 10/06/23 10/06/23 23:51 04:10 07:51 Temperature 36.7 C 36.4 C L 36.7 C Heart Rate Heart Rate [ 66 76 70 Brachial] Respiratory 18 18 16 Rate Blood Pressure Blood Pressure 142/60 H 161/70 H 153/67 H [Brachial artery] O2 Saturation 97 100 100 Oxygen O2 Source Room air I&O (Last 24 Hrs): Intake and Output Totals x24h 10/04/23 10/05/23 10/06/23 23:59 23:59 23:59 Intake Total 1300 640 Output Total 200 Balance 1100 640 General: Alert, Oriented x3 HEENT: Mucous membr. moist/pink Neck: Supple Neuro: Alert, Non Focal Cardiovascular: Regular rate Respiratory: No respiratory distress Abdomen: Soft, No tenderness Extremities: No clubbing, No edema, No tenderness/swelling - Results Results: Laboratory Results WBC 10.8 x10^3/uL (4.8-10.8) 10/06/23 05:28 RBC 3.66 10^6/uL (4.20-5.40) L 10/06/23 05:28 Hgb 11.8 g/dL (12.0-16.0) L 10/06/23 05:28 Hct 36.3 % (37.0-47.0) L 10/06/23 05:28 MCV 99.2 fL (81.0-99.0) H 10/06/23 05:28 MCH 32.2 pg (27.0-31.0) H 10/06/23 05:28 MCHC 32.5 g/dL (32.0-36.0) 10/06/23 05:28 RDW 12.9 % (12.0-15.0) 10/06/23 05:28 Plt Count 295 10^3/uL (130-450) 10/06/23 05:28 MPV 9.4 fL (7.9-10.8) 10/06/23 05:28 Neut # (Auto) 8.3 10^3/uL (1.5-6.6) H 10/06/23 05:28 Lymph # (Auto) 0.8 10^3/uL (1.5-3.5) L 10/06/23 05:28 [place] # (Auto) 1.3 10^3/uL (0.0-1.0) H 10/06/23 05:28 Eos # (Auto) 0.3 10^3/uL (0.0-0.7) 10/06/23 05:28 Baso # (Auto) 0.0 10^3/uL (0.0-0.1) 10/06/23 05:28 Absolute Nucleated RBC 0.00 x10^3/uL 10/06/23 05:28 Nucleated RBC % 0.0 /100WBC 10/06/23 05:28 Sodium 137 mmol/L (135-145) 10/06/23 05:28 Potassium 3.8 mmol/L (3.5-4.5) 10/06/23 05:28 Chloride 105 mmol/L (101-111) 10/06/23 05:28 Carbon Dioxide 26 mmol/L (21-32) 10/06/23 05:28 Anion Gap 6.0 (6-13) 10/06/23 05:28 BUN 31 mg/dL (6-20) H 10/06/23 05:28 Creatinine 1.1 mg/dL (0.6-1.3) 10/06/23 05:28 Estimated GFR (MDRD) 47 (>89) L 10/06/23 05:28 Glucose 78 mg/dL (74-104) 10/06/23 05:28 Lactic Acid 0.9 mmol/L (0.5-2.2) 10/05/23 14:02 Calcium 8.5 mg/dL (8.5-10.3) 10/06/23 05:28 Magnesium 1.4 mg/dL (1.7-2.3) L 10/06/23 05:28 Total Bilirubin 0.6 mg/dL (0.2-1.0) 10/05/23 10:30 AST 12 IU/L (10-42) 10/05/23 10:30 ALT 11 IU/L (10-60) 10/05/23 10:30 Alkaline Phosphatase 73 IU/L (42-121) 10/05/23 10:30 Total Protein 6.7 g/dL (6.4-8.9) 10/05/23 10:30 Albumin 3.6 g/dL (3.2-5.5) 10/05/23 10:30 Globulin 3.1 g/dL (2.1-4.2) 10/05/23 10:30 Albumin/Globulin Ratio 1.2 (1.0-2.2) 10/05/23 10:30 Lipase 24 U/L (11-82) 10/05/23 10:30 Urine Color YELLOW 10/05/23 10:35 Urine Clarity CLEAR (CLEAR) 10/05/23 10:35 Urine pH 5.5 PH (5.0-7.5) 10/05/23 10:35 Ur Specific [place] 1.015 (1.002-1.030) 10/05/23 10:35 Urine Protein 30 mg/dL (NEGATIVE) H 10/05/23 10:35 Urine Glucose (UA) NEGATIVE mg/dL (NEGATIVE) 10/05/23 10:35 Urine Ketones NEGATIVE mg/dL (NEGATIVE) 10/05/23 10:35 Urine Occult Blood NEGATIVE (NEGATIVE) 10/05/23 10:35 Urine Nitrite NEGATIVE (NEGATIVE) 10/05/23 10:35 Urine Bilirubin NEGATIVE (NEGATIVE) 10/05/23 10:35 Urine Urobilinogen 0.2 (NORMAL) E.U./dL (NORMAL) 10/05/23 10:35 Ur Leukocyte Esterase NEGATIVE (NEGATIVE) 10/05/23 10:35 Urine RBC 0-5 /HPF (0-5) 10/05/23 10:35 Urine WBC 0-3 /HPF (0-5) 10/05/23 10:35 Ur Squamous Epith Cells FEW Squamous (<= Few) 10/05/23 10:35 Amorphous Sediment Few /LPF 10/05/23 10:35 Urine Bacteria Few /HPF (None Seen) 10/05/23 10:35 Urine Casts 3-5 Hyaline Casts /LPF 10/05/23 10:35 Ur Microscopic Review INDICATED 10/05/23 10:35 Urine Culture Comments NOT INDICATED 10/05/23 10:35
[2023-10-06] MEDS: DEXTROSE 5%-0.9% NACL 1,000 ML IV SCH (13:10)
--- NOTE | 2023-10-06 15:02 | PHARMACY PROGRESS NOTE ---
- Best Possible Medication History Admit Date and Time: 10/05/23 1630 Processed by: Pharmacy Medication History completed: Yes Patient Interview: Completed Secondary Source(s): Insurance records As the person ultimately responsible for medication therapy, providers are able to order a medication from an existing home medication list in [facility] via the "Reconcile Routine" prior to Confirmation of that medication by child support agent. Such practice is discouraged except when the physician, in their clinical judgment, deems that a medical need exists for a medication without regard to previous use.
[2023-10-06] MEDS: SUCRALFATE 1 GM/10 ML UDC PO SCH (20:30)
[2023-10-06] MEDS: AMITRIPTYLINE 10 MG TABLET PO SCH (20:31)
[2023-10-06] MEDS: SODIUM CHLORIDE 0.65% NASAL SPRAY NAS SCH (20:31)
[2023-10-07] MEDS: ACETAMINOPHEN 325 MG TABLET PO SCH ×6 (00:56→21:37)
[2023-10-07] MEDS: SODIUM CHLORIDE FLUSH 0.9% 10 ML SYRINGE IVP SCH ×3 (01:01→15:37)
[2023-10-07] MEDS: PIPERACILLIN/TAZOBACTAM 3.375 GM in SODIUM CHLORIDE 0.9% MINIBAG 100 ML IV SCH ×3 (01:23→19:33)
[2023-10-07] MEDS: THYROID 60 MG TABLET PO SCH (06:35)
[2023-10-07 06:36] LABS: BASOPHILS % (AUTO) 0.4 %; EOSINOPHILS # (AUTO) 0.3 10^3/uL (0.0-0.7); EOSINOPHILS % (AUTO) 3.1 %; HCT - HEMATOCRIT 36.6 % (37.0-47.0); HGB - HEMOGLOBIN 11.6 g/dL (12.0-16.0); LYMPHOCYTES # (AUTO) 0.9 10^3/uL (1.5-3.5); LYMPHOCYTES % (AUTO) 7.9 %; MEAN CORPUSCULAR HEMOGLOBIN 31.9 pg (27.0-31.0); MEAN CORPUSCULAR HGB CONC 31.7 g/dL (32.0-36.0); MEAN CORPUSCULAR VOLUME 100.5 fL (81.0-99.0); MEAN PLATELET VOLUME 9.1 fL (7.9-10.8); MONOCYTES # (AUTO) 1.4 10^3/uL (0.0-1.0); NEUTROPHILS # (AUTO) 8.1 10^3/uL (1.5-6.6); NEUTROPHILS % (AUTO) 74.5 %; PLT - PLATELET COUNT 294 10^3/uL (130-450); RED BLOOD COUNT 3.64 10^6/uL (4.20-5.40); RED CELL DISTRIBUTION WIDTH 12.9 % (12.0-15.0); WHITE BLOOD COUNT 10.9 x10^3/uL (4.8-10.8)
[2023-10-07] MEDS: PANTOPRAZOLE 40 MG TABLET PO SCH (06:40)
[2023-10-07 06:49] LABS: CREATININE 1.2 mg/dL (0.6-1.3); MAGNESIUM 1.6 mg/dL (1.7-2.3); POTASSIUM 3.8 mmol/L (3.5-4.5)
[2023-10-07 07:05] LABS: THYROID STIMULATING HORMONE 4.77 uIU/mL (0.34-5.60)
--- NOTE | 2023-10-07 07:27 | PROVIDER PROGRESS NOTE ---
Subjective - General Admit Date: 10/05/23 - Review of Systems General: negative: Fever Cardiovascular: negative: Chest pain Gastrointestinal: negative: Nausea, Vomiting All Other Systems: positive: Reviewed and negative - Other Other Information/Narrative: Patient continues to endorse decreased appetite but is tolerating protein supplement shakes. No n/v. +bloating. +BM last night. Patient's chief concern this morning is that she's not sleeping well due to all the activity in the hospital and when she did fall asleep last night, she was awakened for vitals within an hour. She would like to go home when it is safe to do so. Objective - Patient Data Reviewed Vital Signs: Yes Vital Signs: Vital Signs x48h Temp Pulse Resp BP Pulse Ox 10/07/23 06:18 65 145/65 H 10/07/23 05:53 36.3 C L 72 17 177/70 H 100 10/07/23 00:53 36.7 C 74 16 144/52 H 97 Weight: Weight 10/05/23 10/06/23 10/07/23 23:59 23:59 23:59 Weight (kg) 58 kg 58 kg 58 kg Intake & Output: Intake and Output Totals x24h 10/05/23 10/06/23 10/07/23 23:59 23:59 23:59 Intake Total 1300 1440 200 Output Total 200 Balance 1100 1440 200 - Lab Results Lab Results: 10/07/23 06:30 10/07/23 06:30 Other Lab Results: Lab Results x24hrs 10/07/23 10/07/23 Range/Units 06:30 06:30 WBC 10.9 H (4.8-10.8) x10^3/uL RBC 3.64 L (4.20-5.40) 10^6/uL Hgb 11.6 L (12.0-16.0) g/dL Hct 36.6 L (37.0-47.0) % MCV 100.5 H (81.0-99.0) fL MCH 31.9 H (27.0-31.0) pg MCHC 31.7 L (32.0-36.0) g/dL RDW 12.9 (12.0-15.0) % Plt Count 294 (130-450) 10^3/uL MPV 9.1 (7.9-10.8) fL Neut # (Auto) 8.1 H (1.5-6.6) 10^3/uL Lymph # (Auto) 0.9 L (1.5-3.5) 10^3/uL [place] # (Auto) 1.4 H (0.0-1.0) 10^3/uL Eos # (Auto) 0.3 (0.0-0.7) 10^3/uL Baso # (Auto) 0.0 (0.0-0.1) 10^3/uL Absolute Nucleated RBC 0.00 x10^3/uL Nucleated RBC % 0.0 /100WBC Sodium 137 (135-145) mmol/L Potassium 3.8 (3.5-4.5) mmol/L Chloride 106 (101-111) mmol/L Carbon Dioxide 25 (21-32) mmol/L Anion Gap 6.0 (6-13) BUN 23 H (6-20) mg/dL Creatinine 1.2 (0.6-1.3) mg/dL Estimated GFR (MDRD) 42 L (>89) Glucose 96 (74-104) mg/dL Calcium 8.0 L (8.5-10.3) mg/dL Magnesium 1.6 L (1.7-2.3) mg/dL TSH 4.77 (0.34-5.60) uIU/mL - Current Medications Current Medications: Current Medications Generic Name Dose Route Start Last Admin Trade Name Freq PRN Reason Stop Dose Admin Acetaminophen 650 mg 10/05/23 17:00 10/07/23 05:42 Acetaminophen 325 Mg Tablet PO 650 mg Q4HR MARK ANTHONY Administration Acetaminophen 1,000 mg 10/05/23 18:18 10/06/23 06:41 Acetaminophen 500 Mg Tablet PO 1,000 mg TID PRN Administration Pain or Fever > 38C (100.4F) Amitriptyline HCl 10 mg 10/05/23 21:00 10/06/23 20:31 Amitriptyline 10 Mg Tablet PO 10 mg HS MARK ANTHONY Administration Carvedilol 12.5 mg 10/05/23 21:00 10/06/23 20:43 Carvedilol 12.5 Mg Tablet PO 12.5 mg BID MARK ANTHONY Administration Clonidine HCl 1 patch 10/05/23 19:00 10/05/23 21:12 Clonidine 0.1 Mg Patch TOP Not Given Q7D MARK ANTHONY Clonidine HCl 1 patch 10/05/23 19:00 10/05/23 21:12 Clonidine 0.2 Mg Patch TOP Not Given Q7D MARK ANTHONY Piperacillin Sod/Tazobactam 100 mls @ 25 mls/hr 10/05/23 18:00 10/07/23 05:25 Sod 3.375 gm/ Sodium Chloride IV Infused Q8H MARK ANTHONY Infusion Dextrose/Sodium Chloride 1,000 mls @ 0 mls/hr 10/06/23 11:00 10/06/23 13:10 D5ns IV 20 mls/hr .Q0M MARK ANTHONY Administration TKO Ibuprofen 400 mg 10/05/23 16:28 10/06/23 22:05 Ibuprofen 400 Mg Tablet PO 400 mg Q4HR PRN Administration Moderate Pain (Level 4-6) Losartan Potassium 100 mg 10/06/23 09:00 10/06/23 08:30 Losartan 50 Mg Tablet PO 100 mg DAILY MARK ANTHONY Administration Magnesium Oxide 800 mg 10/06/23 09:00 10/06/23 16:19 Magnesium Oxide 400 Mg Tablet PO 800 mg BIDWM MARK ANTHONY Administration Ondansetron HCl 4 mg 10/05/23 16:28 10/05/23 22:11 Ondansetron 4 Mg/2 Ml Vial IVP 4 mg Q6HR PRN Administration Nausea / Vomiting Pantoprazole Sodium 40 mg 10/06/23 07:00 10/07/23 06:40 Pantoprazole 40 Mg Tablet PO 40 mg QDAC MARK ANTHONY Administration Sodium Chloride 10 ml 10/05/23 17:00 10/07/23 01:01 Sodium Chloride Flush 0.9% 10 Ml Syringe IVP 10 ml 0100,0900,1700 MARK ANTHONY Administration Sodium Chloride 2 sprays 10/06/23 21:00 10/06/23 20:31 Sodium Chloride 0.65% Nasal [place] LEILA 2 spr HS MARK ANTHONY Administration Sucralfate 1 gm 10/05/23 21:00 10/06/23 20:30 Sucralfate 1 Gm/10 Ml Udc PO 1 gm HS MARK ANTHONY Administration Thyroid 30 mg 10/06/23 07:00 10/07/23 06:35 Thyroid 60 Mg Tablet PO 30 mg QDAC MARK ANTHONY Administration Verapamil HCl 120 mg 10/06/23 09:00 10/06/23 08:30 Verapamil Er 120 Mg Tablet PO 120 mg DAILY MARK ANTHONY Administration - Physical Exam General Appearance: positive: No acute distress, Alert Eyes Bilateral: positive: Normal inspection ENT: positive: No signs of dehydration Neck: positive: Trachea midline Respiratory: positive: No respiratory distress Cardiovascular: positive: Regular rate & rhythm Abdomen: positive: Tenderness (slight, RLQ, 3/10). negative: No distention (mild distension, stable from yesterday), Guarding, Rebound Skin: positive: No rash Extremities: positive: Non-tender Neurologic/Psychiatric: positive: Oriented x3 Impression/Plan - Problem List Problem List: This is an 88-year-old female with: 1. Perforated appendicitis versus perforated right-sided diverticulitis - ? prior appy. - CT 10/05 shows three fluid collections measuring, 2.6 x 1.9, 4.4 x 2.4, and 2.2 x 1.7 cm, pandiverticulosis, no visualized appendix, no free air. Fluid collections not amenable to IR drainage per Dr. Lucas of IR in [place]. - leukocytosis stable from yesterday. Tolerating regular diet in small amounts and protein supplements. - Pain improving with IV antibiotics (on zosyn), today is Day #3. If the patient her pain resolves, I would consider transition to oral antibiotics. If she improves without complete resolution of pain, I would recommend repeat CT scan 3 to 5 days after previous study. If the patient worsens, she may require percutaneous drain placement (not currently available at [facility]) and/or surgical intervention. Patient is higher than average risk surgical candidate given her advanced age and comorbidities. - Plan to continue IV abx, multimodal pain approach - SCD's for DVT ppx 2. Hypertension, hypothyroidism, depression, GERD, osteoarthritis The patient's home medications have been restarted. Patient is followed by the hospitalist team, Dr. Bolivar, for her comorbidities and I appreciate her input in the care of this patient.
[2023-10-07] MEDS ORDERED: MAGNESIUM SULFATE 2 GRAM 2 GM/50 ML BAG IV ONE (07:45)
[2023-10-07] MEDS: carvediloL 12.5 MG TABLET PO SCH ×2 (08:41→21:40)
[2023-10-07] MEDS: LOSARTAN 50 MG TABLET PO SCH (08:41)
[2023-10-07] MEDS: MAGNESIUM OXIDE 400 MG TABLET PO SCH ×2 (08:41→16:45)
[2023-10-07] MEDS: VERAPAMIL ER 120 MG TABLET PO SCH (09:02)
--- NOTE | 2023-10-07 12:03 | PROVIDER PROGRESS NOTE ---
Assessment/Plan - Problem List (1) Colonic diverticular abscess Assessment/Plan: Since there are 3 separate abscessed areas, this is unlikely to be a burst appendix but most likely to be from multiple diverticuli WBC has been 12>> 10.8>> 10.9 today on 3rd day of iv antibx today Plan: Agree with IV Zosyn and eventual transition to oral antibx Cont pain meds as needed. She cannot receive narcotics which cause her N/V. Further diet, fluid orders, and any surgical management, will be as per General Surgery. Cont with conservative management with iv antibx, which has helped the pt so far. The pt is felt to be a higher than acceptable surgical risk, so she would need transfer to a larger facility for IR management, if she worsens, per the Surgeon. Follow WBC daily (2) Prerenal azotemia Conclusion/Plan: BUN/creatinine were 45/1.3 at admission, 31/1.1 yesterday and 23/1.2 today (All labs were reviewed) Yesterday I started her on D5 NS at TKO, since her oral intake has been negligible, to improve her prerenal azotemia Plan: Cont low level iv hydration Avoid nephrotoxins Follow BMP daily (3) Hypomagnesemia Conclusion/Plan: Likely from poor p.o. intake for the last few days Plan: Mg replacement and follow serum Mg level intermittently (4) HTN (hypertension) Conclusion/Plan: Plan: I ordered the BP meds needed and I wrote parameters for when they should be on hold. (5) Hypothyroidism Conclusion/Plan: Her TSH level is adequate at 4.77 Plan: Cont her synthroid dose (6) GERD (gastroesophageal reflux disease) Conclusion/Plan: CT abdomen showed a large hiatal hernia and the patient has a history of GERD Plan: Patient should be on either Pepcid or Protonix Also we are continuing her bedtime Sucralfate - Current Meds Current Meds: Current Medications Generic Name Dose Route Start Last Admin Trade Name Freq PRN Reason Stop Dose Admin Acetaminophen 650 mg 10/05/23 17:00 10/07/23 08:40 Acetaminophen 325 Mg Tablet PO 650 mg Q4HR MARK ANTHONY Administration Acetaminophen 1,000 mg 10/05/23 18:18 10/06/23 06:41 Acetaminophen 500 Mg Tablet PO 1,000 mg TID PRN Administration Pain or Fever > 38C (100.4F) Amitriptyline HCl 10 mg 10/05/23 21:00 10/06/23 20:31 Amitriptyline 10 Mg Tablet PO 10 mg HS MARK ANTHONY Administration Carvedilol 12.5 mg 10/05/23 21:00 10/07/23 08:41 Carvedilol 12.5 Mg Tablet PO 12.5 mg BID MARK ANTHONY Administration Clonidine HCl 1 patch 10/05/23 19:00 10/05/23 21:12 Clonidine 0.1 Mg Patch TOP Not Given Q7D MARK ANTHONY Clonidine HCl 1 patch 10/05/23 19:00 10/05/23 21:12 Clonidine 0.2 Mg Patch TOP Not Given Q7D MARK ANTHONY Piperacillin Sod/Tazobactam 100 mls @ 25 mls/hr 10/05/23 18:00 10/07/23 09:46 Sod 3.375 gm/ Sodium Chloride IV 25 mls/hr Q8H MARK ANTHONY Administration Dextrose/Sodium Chloride 1,000 mls @ 0 mls/hr 10/06/23 11:00 10/07/23 08:47 D5ns IV 0 mls/hr .Q0M MARK ANTHONY Infusion TKO Ibuprofen 400 mg 10/05/23 16:28 10/06/23 22:05 Ibuprofen 400 Mg Tablet PO 400 mg Q4HR PRN Administration Moderate Pain (Level 4-6) Losartan Potassium 100 mg 10/06/23 09:00 10/07/23 08:41 Losartan 50 Mg Tablet PO 100 mg DAILY MARK ANTHONY Administration Magnesium Oxide 800 mg 10/06/23 09:00 10/07/23 08:41 Magnesium Oxide 400 Mg Tablet PO 800 mg BIDWM MARK ANTHONY Administration Ondansetron HCl 4 mg 10/05/23 16:28 10/05/23 22:11 Ondansetron 4 Mg/2 Ml Vial IVP 4 mg Q6HR PRN Administration Nausea / Vomiting Pantoprazole Sodium 40 mg 10/06/23 07:00 10/07/23 06:40 Pantoprazole 40 Mg Tablet PO 40 mg QDAC MARK ANTHONY Administration Sodium Chloride 10 ml 10/05/23 17:00 10/07/23 08:41 Sodium Chloride Flush 0.9% 10 Ml Syringe IVP 10 ml 0100,0900,1700 MARK ANTHONY Administration Sodium Chloride 2 sprays 10/06/23 21:00 10/06/23 20:31 Sodium Chloride 0.65% Nasal [place] LEILA 2 spr HS MARK ANTHONY Administration Sucralfate 1 gm 10/05/23 21:00 10/06/23 20:30 Sucralfate 1 Gm/10 Ml Udc PO 1 gm HS MARK ANTHONY Administration Thyroid 30 mg 10/06/23 07:00 10/07/23 06:35 Thyroid 60 Mg Tablet PO 30 mg QDAC MARK ANTHONY Administration Verapamil HCl 120 mg 10/06/23 09:00 10/07/23 09:02 Verapamil Er 120 Mg Tablet PO 120 mg DAILY MARK ANTHONY Administration - Lab Result Fish Bone Diagrams: 10/07/23 06:30 10/07/23 06:30 - Additional Planning My Orders: My Active Orders 10/06/23 21:00 Sodium Chloride 0.65% [[place]] 2 sprays LEILA HS 10/07/23 07:46 Miscellaenous Nursing Order [RC] QSHIFT 10/08/23 05:00 BMP - BASIC METABOLIC PANEL [CHEM] DAILYLAB CBC - COMP BLD CT W/AUTO DIFF [HEME] DAILYLAB 10/09/23 05:00 BMP - BASIC METABOLIC PANEL [CHEM] DAILYLAB CBC - COMP BLD CT W/AUTO DIFF [HEME] DAILYLAB Subjective - Subjective Patient Reports: Resting Comfortably, Other (Has no appetite. There has been no nausea or vomiting and much less abdominal pain, she says) Objective Vital Signs: Vital Signs - 24 hr 10/06/23 10/06/23 10/06/23 15:55 20:38 22:08 Temperature 36.5 C 36.6 C Heart Rate [ 66 76 Brachial] Respiratory 16 18 Rate Blood Pressure 149/61 H 173/72 H 164/78 H [Brachial artery] O2 Saturation 98 97 10/07/23 10/07/23 10/07/23 00:53 05:53 06:18 Temperature 36.7 C 36.3 C L Heart Rate [ 74 72 65 Brachial] Respiratory 16 17 Rate Blood Pressure 144/52 H 177/70 H 145/65 H [Brachial artery] O2 Saturation 97 100 10/07/23 07:37 Temperature 36.4 C L Heart Rate [ 65 Brachial] Respiratory 16 Rate Blood Pressure 148/62 H [Brachial artery] O2 Saturation 93 Oxygen O2 Source Room air I&O (Last 24 Hrs): Intake and Output Totals x24h 10/05/23 10/06/23 10/07/23 23:59 23:59 23:59 Intake Total 1300 1440 1122.333 Output Total 200 Balance 1100 1440 1122.333 General: Alert, No acute distress HEENT: EOMI, Mucous membr. moist/pink Neck: Supple, No JVD Neuro: Alert, Non Focal Cardiovascular: Regular rate, No murmurs Respiratory: No respiratory distress, Breath sounds nml Abdomen: Normal bowel sounds, Soft, No tenderness Extremities: No clubbing, No edema, No tenderness/swelling - Results Results: Laboratory Results WBC 10.9 x10^3/uL (4.8-10.8) H 10/07/23 06:30 RBC 3.64 10^6/uL (4.20-5.40) L 10/07/23 06:30 Hgb 11.6 g/dL (12.0-16.0) L 10/07/23 06:30 Hct 36.6 % (37.0-47.0) L 10/07/23 06:30 MCV 100.5 fL (81.0-99.0) H 10/07/23 06:30 MCH 31.9 pg (27.0-31.0) H 10/07/23 06:30 MCHC 31.7 g/dL (32.0-36.0) L 10/07/23 06:30 RDW 12.9 % (12.0-15.0) 10/07/23 06:30 Plt Count 294 10^3/uL (130-450) 10/07/23 06:30 MPV 9.1 fL (7.9-10.8) 10/07/23 06:30 Neut # (Auto) 8.1 10^3/uL (1.5-6.6) H 10/07/23 06:30 Lymph # (Auto) 0.9 10^3/uL (1.5-3.5) L 10/07/23 06:30 [place] # (Auto) 1.4 10^3/uL (0.0-1.0) H 10/07/23 06:30 Eos # (Auto) 0.3 10^3/uL (0.0-0.7) 10/07/23 06:30 Baso # (Auto) 0.0 10^3/uL (0.0-0.1) 10/07/23 06:30 Absolute Nucleated RBC 0.00 x10^3/uL 10/07/23 06:30 Nucleated RBC % 0.0 /100WBC 10/07/23 06:30 Sodium 137 mmol/L (135-145) 10/07/23 06:30 Potassium 3.8 mmol/L (3.5-4.5) 10/07/23 06:30 Chloride 106 mmol/L (101-111) 10/07/23 06:30 Carbon Dioxide 25 mmol/L (21-32) 10/07/23 06:30 Anion Gap 6.0 (6-13) 10/07/23 06:30 BUN 23 mg/dL (6-20) H 10/07/23 06:30 Creatinine 1.2 mg/dL (0.6-1.3) 10/07/23 06:30 Estimated GFR (MDRD) 42 (>89) L 10/07/23 06:30 Glucose 96 mg/dL (74-104) 10/07/23 06:30 Lactic Acid 0.9 mmol/L (0.5-2.2) 10/05/23 14:02 Calcium 8.0 mg/dL (8.5-10.3) L 10/07/23 06:30 Magnesium 1.6 mg/dL (1.7-2.3) L 10/07/23 06:30 Total Bilirubin 0.6 mg/dL (0.2-1.0) 10/05/23 10:30 AST 12 IU/L (10-42) 10/05/23 10:30 ALT 11 IU/L (10-60) 10/05/23 10:30 Alkaline Phosphatase 73 IU/L (42-121) 10/05/23 10:30 Total Protein 6.7 g/dL (6.4-8.9) 10/05/23 10:30 Albumin 3.6 g/dL (3.2-5.5) 10/05/23 10:30 Globulin 3.1 g/dL (2.1-4.2) 10/05/23 10:30 Albumin/Globulin Ratio 1.2 (1.0-2.2) 10/05/23 10:30 Lipase 24 U/L (11-82) 10/05/23 10:30 TSH 4.77 uIU/mL (0.34-5.60) 10/07/23 06:30 Urine Color YELLOW 10/05/23 10:35 Urine Clarity CLEAR (CLEAR) 10/05/23 10:35 Urine pH 5.5 PH (5.0-7.5) 10/05/23 10:35 Ur Specific [place] 1.015 (1.002-1.030) 10/05/23 10:35 Urine Protein 30 mg/dL (NEGATIVE) H 10/05/23 10:35 Urine Glucose (UA) NEGATIVE mg/dL (NEGATIVE) 10/05/23 10:35 Urine Ketones NEGATIVE mg/dL (NEGATIVE) 10/05/23 10:35 Urine Occult Blood NEGATIVE (NEGATIVE) 10/05/23 10:35 Urine Nitrite NEGATIVE (NEGATIVE) 10/05/23 10:35 Urine Bilirubin NEGATIVE (NEGATIVE) 10/05/23 10:35 Urine Urobilinogen 0.2 (NORMAL) E.U./dL (NORMAL) 10/05/23 10:35 Ur Leukocyte Esterase NEGATIVE (NEGATIVE) 10/05/23 10:35 Urine RBC 0-5 /HPF (0-5) 10/05/23 10:35 Urine WBC 0-3 /HPF (0-5) 10/05/23 10:35 Ur Squamous Epith Cells FEW Squamous (<= Few) 10/05/23 10:35 Amorphous Sediment Few /LPF 10/05/23 10:35 Urine Bacteria Few /HPF (None Seen) 10/05/23 10:35 Urine Casts 3-5 Hyaline Casts /LPF 10/05/23 10:35 Ur Microscopic Review INDICATED 10/05/23 10:35 Urine Culture Comments NOT INDICATED 10/05/23 10:35
[2023-10-07] MEDS ORDERED: SODIUM CHLORIDE 0.9% MINIBAG 100 ML IV ONE (18:18)
[2023-10-07] MEDS ORDERED: carvediloL 12.5 MG TABLET ONE (21:33)
[2023-10-07] MEDS: SODIUM CHLORIDE 0.65% NASAL SPRAY NAS SCH (21:37)
[2023-10-07] MEDS: SUCRALFATE 1 GM/10 ML UDC PO SCH (21:38)
[2023-10-07] MEDS: AMITRIPTYLINE 10 MG TABLET PO SCH (21:38)
[2023-10-08] MEDS: ACETAMINOPHEN 325 MG TABLET PO SCH ×6 (00:28→20:34)
[2023-10-08] MEDS: SODIUM CHLORIDE FLUSH 0.9% 10 ML SYRINGE IVP SCH ×3 (00:28→16:11)
[2023-10-08] MEDS: PIPERACILLIN/TAZOBACTAM 3.375 GM in SODIUM CHLORIDE 0.9% MINIBAG 100 ML IV SCH (03:47)
[2023-10-08 05:44] LABS: BASOPHILS # (AUTO) 0.1 10^3/uL (0.0-0.1); BASOPHILS % (AUTO) 0.5 %; EOSINOPHILS # (AUTO) 0.5 10^3/uL (0.0-0.7); EOSINOPHILS % (AUTO) 4.8 %; HCT - HEMATOCRIT 34.3 % (37.0-47.0); LYMPHOCYTES % (AUTO) 10.1 %; MEAN CORPUSCULAR HEMOGLOBIN 31.4 pg (27.0-31.0); MEAN CORPUSCULAR HGB CONC 32.1 g/dL (32.0-36.0); MONOCYTES # (AUTO) 1.3 10^3/uL (0.0-1.0); NEUTROPHILS # (AUTO) 6.9 10^3/uL (1.5-6.6); NEUTROPHILS % (AUTO) 69.9 %; PLT - PLATELET COUNT 317 10^3/uL (130-450); WHITE BLOOD COUNT 9.9 x10^3/uL (4.8-10.8)
[2023-10-08 06:07] LABS: CALCIUM 7.8 mg/dL (8.5-10.3); POTASSIUM 3.7 mmol/L (3.5-4.5)
[2023-10-08] MEDS: THYROID 60 MG TABLET PO SCH (06:28)
[2023-10-08] MEDS: PANTOPRAZOLE 40 MG TABLET PO SCH (06:28)
--- NOTE | 2023-10-08 08:42 | PROVIDER PROGRESS NOTE ---
Subjective - General Admit Date: 10/05/23 - Review of Systems General: negative: Fever Cardiovascular: negative: Chest pain Gastrointestinal: negative: Nausea, Vomiting All Other Systems: positive: Reviewed and negative - Other Other Information/Narrative: Patient not complaining of pain this morning. Tolerating diet in small amounts, little appetitie. +void, +BM, denies flatus. Slept better last night. Still wants to go home. Objective - Patient Data Reviewed Vital Signs: Yes Vital Signs: Vital Signs x48h Temp Pulse Resp BP Pulse Ox 10/08/23 08:15 36.8 C 70 18 157/70 H 97 Weight: Weight 10/06/23 10/07/23 10/08/23 23:59 23:59 23:59 Weight (kg) 58 kg 58 kg 59 kg Intake & Output: Intake and Output Totals x24h 10/06/23 10/07/23 10/08/23 23:59 23:59 23:59 Intake Total 1440 2489.333 Balance 1440 2489.333 - Lab Results Lab Results: 10/08/23 05:12 10/08/23 05:12 Other Lab Results: Lab Results x24hrs 10/08/23 10/08/23 Range/Units 05:12 05:12 WBC 9.9 (4.8-10.8) x10^3/uL RBC 3.50 L (4.20-5.40) 10^6/uL Hgb 11.0 L (12.0-16.0) g/dL Hct 34.3 L (37.0-47.0) % MCV 98.0 (81.0-99.0) fL MCH 31.4 H (27.0-31.0) pg MCHC 32.1 (32.0-36.0) g/dL RDW 13.0 (12.0-15.0) % Plt Count 317 (130-450) 10^3/uL MPV 9.0 (7.9-10.8) fL Neut # (Auto) 6.9 H (1.5-6.6) 10^3/uL Lymph # (Auto) 1.0 L (1.5-3.5) 10^3/uL [place] # (Auto) 1.3 H (0.0-1.0) 10^3/uL Eos # (Auto) 0.5 (0.0-0.7) 10^3/uL Baso # (Auto) 0.1 (0.0-0.1) 10^3/uL Absolute Nucleated RBC 0.00 x10^3/uL Nucleated RBC % 0.0 /100WBC Sodium 139 (135-145) mmol/L Potassium 3.7 (3.5-4.5) mmol/L Chloride 106 (101-111) mmol/L Carbon Dioxide 26 (21-32) mmol/L Anion Gap 7.0 (6-13) BUN 20 (6-20) mg/dL Creatinine 1.0 (0.6-1.3) mg/dL Estimated GFR (MDRD) 52 L (>89) Glucose 96 (74-104) mg/dL Calcium 7.8 L (8.5-10.3) mg/dL - Current Medications Current Medications: Current Medications Generic Name Dose Route Start Last Admin Trade Name Freq PRN Reason Stop Dose Admin Acetaminophen 650 mg 10/05/23 17:00 10/08/23 05:24 Acetaminophen 325 Mg Tablet PO 650 mg Q4HR MARK ANTHONY Administration Acetaminophen 1,000 mg 10/05/23 18:18 10/06/23 06:41 Acetaminophen 500 Mg Tablet PO 1,000 mg TID PRN Administration Pain or Fever > 38C (100.4F) Amitriptyline HCl 10 mg 10/05/23 21:00 10/07/23 21:38 Amitriptyline 10 Mg Tablet PO 10 mg HS MARK ANTHONY Administration Carvedilol 12.5 mg 10/05/23 21:00 10/07/23 21:40 Carvedilol 12.5 Mg Tablet PO 12.5 mg BID MARK ANTHONY Administration Clonidine HCl 1 patch 10/05/23 19:00 10/05/23 21:12 Clonidine 0.1 Mg Patch TOP Not Given Q7D MARK ANTHONY Clonidine HCl 1 patch 10/05/23 19:00 10/05/23 21:12 Clonidine 0.2 Mg Patch TOP Not Given Q7D MARK ANTHONY Dextrose/Sodium Chloride 1,000 mls @ 0 mls/hr 10/06/23 11:00 10/07/23 19:07 D5ns IV 20 mls/hr .Q0M MARK ANTHONY Infusion TKO Ibuprofen 400 mg 10/05/23 16:28 10/06/23 22:05 Ibuprofen 400 Mg Tablet PO 400 mg Q4HR PRN Administration Moderate Pain (Level 4-6) Losartan Potassium 100 mg 10/06/23 09:00 10/07/23 08:41 Losartan 50 Mg Tablet PO 100 mg DAILY MARK ANTHONY Administration Magnesium Oxide 800 mg 10/06/23 09:00 10/07/23 16:45 Magnesium Oxide 400 Mg Tablet PO 800 mg BIDWM MARK ANTHONY Administration Ondansetron HCl 4 mg 10/05/23 16:28 10/05/23 22:11 Ondansetron 4 Mg/2 Ml Vial IVP 4 mg Q6HR PRN Administration Nausea / Vomiting Pantoprazole Sodium 40 mg 10/06/23 07:00 10/08/23 06:28 Pantoprazole 40 Mg Tablet PO 40 mg QDAC MARK ANTHONY Administration Sodium Chloride 10 ml 10/05/23 17:00 10/08/23 00:28 Sodium Chloride Flush 0.9% 10 Ml Syringe IVP 10 ml 0100,0900,1700 MARK ANTHONY Administration Sodium Chloride 2 sprays 10/06/23 21:00 10/07/23 21:37 Sodium Chloride 0.65% Nasal [place] LEILA 2 spr HS MARK ANTHONY Administration Sucralfate 1 gm 10/05/23 21:00 10/07/23 21:38 Sucralfate 1 Gm/10 Ml Udc PO 1 gm HS MARK ANTHONY Administration Thyroid 30 mg 10/06/23 07:00 10/08/23 06:28 Thyroid 60 Mg Tablet PO 30 mg QDAC MARK ANTHONY Administration Verapamil HCl 120 mg 10/06/23 09:00 10/07/23 09:02 Verapamil Er 120 Mg Tablet PO 120 mg DAILY MARK ANTHONY Administration - Physical Exam General Appearance: positive: No acute distress, Alert Eyes Bilateral: positive: Normal inspection ENT: positive: No signs of dehydration Neck: positive: Trachea midline Respiratory: positive: No respiratory distress Cardiovascular: positive: Regular rate & rhythm Abdomen: positive: No distention (mild-mod distension), Tenderness (minimal RLQ with deep palpation, otherwise non tender). negative: Guarding, Rebound Skin: positive: No rash Extremities: positive: Non-tender, Full ROM Neurologic/Psychiatric: positive: Oriented x3 Impression/Plan - Problem List Problem List: This is an 88-year-old female with: 1. Perforated appendicitis versus perforated right-sided diverticulitis - ? prior appy. - CT 11/28 shows three fluid collections measuring, 2.6 x 1.9, 4.4 x 2.4, and 2.2 x 1.7 cm, pandiverticulosis, no visualized appendix, no free air. Fluid collections not amenable to IR drainage per Dr. Lucas of IR in [place]. - leukocytosis resolved. Tolerating regular diet in small amounts and protein supplements. - Pain improving with IV antibiotics (on zosyn), today is Day #4. Pain has improved, will transition to PO abx today. If she tolerates this well, plan to discharge home tomorrow. If she does not do well with PO meds today, recommend repeat CT scan. If the patient worsens, she may require percutaneous drain placement (not currently available at [facility]) and/or surgical intervention. Patient is higher than average risk surgical candidate given her advanced age and comorbidities. - Plan to continue abx, multimodal pain approach - SCD's for DVT ppx 2. Hypertension, hypothyroidism, depression, GERD, osteoarthritis The patient's home medications have been restarted. Patient is followed by the hospitalist team, Dr. Bolivar, for her comorbidities and I appreciate her input in the care of this patient. I would like the patient to follow up with me in clinic in two weeks. I am transferring hospital care of this patient to Dr. Macario Burgos effective this AM, as I am not transportation economics teacher today.
[2023-10-08] MEDS: AMOX/CLAV 875 MG/125 MG TABLET PO SCH ×2 (09:32→20:35)
[2023-10-08] MEDS: carvediloL 12.5 MG TABLET PO SCH ×2 (09:32→20:34)
[2023-10-08] MEDS: LOSARTAN 50 MG TABLET PO SCH (09:33)
[2023-10-08] MEDS: MAGNESIUM OXIDE 400 MG TABLET PO SCH ×2 (09:33→16:11)
[2023-10-08] MEDS: LACTOBACILLUS RHAMNOSUS GG CAPSULE PO SCH (13:20)
[2023-10-08] MEDS: VERAPAMIL ER 120 MG TABLET PO SCH (13:21)
--- NOTE | 2023-10-08 15:48 | PROVIDER PROGRESS NOTE ---
Assessment/Plan - Problem List (1) Colonic diverticular abscess Assessment/Plan: Since there are 3 separate abscessed areas, this is unlikely to be a burst appendix but most likely to be from 3 diverticular sources WBC has been improving on IV Zosyn Plan: Agree with transition to oral antibx today and see how she does, check WBC tomorrow, and if remains better could be DCh tomorrow Follow WBC daily (2) Prerenal azotemia Conclusion/Plan: RESOLVED BUN/creatinine were 45/1.3 at admission>> 31/1.1 and I started her on D5 NS at TKO>> 23/1.2>> 320/1.0 today (All labs were reviewed) , since her oral intake has been negligible, to improve her prerenal azotemia Plan: Will stop iv hydration Follow BMP daily (3) Hypomagnesemia Conclusion/Plan: Likely from poor p.o. intake Plan: Follow serum Mg level (4) HTN (hypertension) Conclusion/Plan: Plan: I ordered the BP meds needed and I wrote parameters for when they should be on hold. (5) Hypothyroidism Conclusion/Plan: Her TSH level is adequate at 4.77 Plan: Cont her synthroid dose (6) GERD (gastroesophageal reflux disease) Conclusion/Plan: CT abdomen showed a large hiatal hernia and the patient has a history of GERD Plan: Patient should be on either Pepcid or Protonix Also we are continuing her bedtime Sucralfate - Current Meds Current Meds: Current Medications Generic Name Dose Route Start Last Admin Trade Name Westonq PRN Reason Stop Dose Admin Acetaminophen 650 mg 10/05/23 17:00 10/08/23 13:20 Acetaminophen 325 Mg Tablet PO 650 mg Q4HR MARK ANTHONY Administration Acetaminophen 1,000 mg 10/05/23 18:18 10/06/23 06:41 Acetaminophen 500 Mg Tablet PO 1,000 mg TID PRN Administration Pain or Fever > 38C (100.4F) Amitriptyline HCl 10 mg 10/05/23 21:00 10/07/23 21:38 Amitriptyline 10 Mg Tablet PO 10 mg HS MARK ANTHONY Administration Amoxicillin/Clavulanate Potassium 1 tab 10/08/23 09:00 10/08/23 09:32 Amox/Clav 875 Mg/125 Mg Tablet PO 1 tab BID MARK ANTHONY Administration Clonidine HCl 1 patch 10/05/23 19:00 10/05/23 21:12 Clonidine 0.1 Mg Patch TOP Not Given Q7D MARK ANTHONY Clonidine HCl 1 patch 10/05/23 19:00 10/05/23 21:12 Clonidine 0.2 Mg Patch TOP Not Given Q7D MARK ANTHONY Dextrose/Sodium Chloride 1,000 mls @ 0 mls/hr 10/06/23 11:00 10/08/23 15:45 D5ns IV 20 mls/hr .Q0M MARK ANTHONY Infusion TKO Ibuprofen 400 mg 10/05/23 16:28 10/06/23 22:05 Ibuprofen 400 Mg Tablet PO 400 mg Q4HR PRN Administration Moderate Pain (Level 4-6) Lactobacillus Rhamnosus 1 cap 10/08/23 12:00 10/08/23 13:20 Lactobacillus Rhamnosus Gg Capsule PO 1 cap DAILY MARK ANTHONY Administration Losartan Potassium 100 mg 10/06/23 09:00 10/08/23 09:33 Losartan 50 Mg Tablet PO 100 mg DAILY MARK ANTHONY Administration Magnesium Oxide 800 mg 10/06/23 09:00 10/08/23 09:33 Magnesium Oxide 400 Mg Tablet PO 800 mg BIDWM MARK ANTHONY Administration Ondansetron HCl 4 mg 10/05/23 16:28 10/05/23 22:11 Ondansetron 4 Mg/2 Ml Vial IVP 4 mg Q6HR PRN Administration Nausea / Vomiting Pantoprazole Sodium 40 mg 10/06/23 07:00 10/08/23 06:28 Pantoprazole 40 Mg Tablet PO 40 mg QDAC MARK ANTHONY Administration Sodium Chloride 10 ml 10/05/23 17:00 10/08/23 09:33 Sodium Chloride Flush 0.9% 10 Ml Syringe IVP Not Given 0100,0900,1700 MARK ANTHONY Sodium Chloride 2 sprays 10/06/23 21:00 10/07/23 21:37 Sodium Chloride 0.65% Nasal [place] LEILA 2 spr HS MARK ANTHONY Administration Sucralfate 1 gm 10/05/23 21:00 10/07/23 21:38 Sucralfate 1 Gm/10 Ml Udc PO 1 gm HS MARK ANTHONY Administration Thyroid 30 mg 10/06/23 07:00 10/08/23 06:28 Thyroid 60 Mg Tablet PO 30 mg QDAC MARK ANTHONY Administration Verapamil HCl 120 mg 10/06/23 09:00 10/08/23 13:21 Verapamil Er 120 Mg Tablet PO 120 mg DAILY MARK ANTHONY Administration - Lab Result Fish Bone Diagrams: 10/08/23 05:12 10/08/23 05:12 - Additional Planning My Orders: My Active Orders 10/07/23 16:45 Vital Signs- Do Not Awaken For [RC] HS 10/08/23 12:00 Lactobacillus Rhamnosus GG [Culturelle] 1 cap PO DAILY 10/08/23 21:00 carvediloL [Coreg] 12.5 mg PO BID 10/09/23 05:00 BMP - BASIC METABOLIC PANEL [CHEM] DAILYLAB CBC - COMP BLD CT W/AUTO DIFF [HEME] DAILYLAB Subjective - Subjective Patient Reports: Resting Comfortably, No Complaints Objective Vital Signs: Vital Signs - 24 hr 10/07/23 10/07/23 10/08/23 15:51 20:17 00:27 Temperature 36.3 C L 36.8 C 36.6 C Heart Rate [ 77 68 71 Brachial] Respiratory 16 16 18 Rate Blood Pressure 140/61 H 156/89 H 146/61 H [Brachial artery] O2 Saturation 96 96 95 10/08/23 08:15 Temperature 36.8 C Heart Rate [ 70 Brachial] Respiratory 18 Rate Blood Pressure 157/70 H [Brachial artery] O2 Saturation 97 Oxygen O2 Source Room air I&O (Last 24 Hrs): Intake and Output Totals x24h 10/06/23 10/07/23 10/08/23 23:59 23:59 23:59 Intake Total 1440 2489.333 872.667 Balance 1440 2489.333 872.667 General: Alert, Oriented x3 HEENT: Mucous membr. moist/pink Neck: Supple Neuro: Alert, Non Focal, Other (?poor memory (as she did not understand the Surg jonathan's plan yesterday and today, of not being [facility] yrt)) Cardiovascular: Regular rate Respiratory: No respiratory distress Abdomen: Normal bowel sounds, Soft, No tenderness Extremities: No clubbing, No edema, No tenderness/swelling - Results Results: Laboratory Results WBC 9.9 x10^3/uL (4.8-10.8) 10/08/23 05:12 RBC 3.50 10^6/uL (4.20-5.40) L 10/08/23 05:12 Hgb 11.0 g/dL (12.0-16.0) L 10/08/23 05:12 Hct 34.3 % (37.0-47.0) L 10/08/23 05:12 MCV 98.0 fL (81.0-99.0) 10/08/23 05:12 MCH 31.4 pg (27.0-31.0) H 10/08/23 05:12 MCHC 32.1 g/dL (32.0-36.0) 10/08/23 05:12 RDW 13.0 % (12.0-15.0) 10/08/23 05:12 Plt Count 317 10^3/uL (130-450) 10/08/23 05:12 MPV 9.0 fL (7.9-10.8) 10/08/23 05:12 Neut # (Auto) 6.9 10^3/uL (1.5-6.6) H 10/08/23 05:12 Lymph # (Auto) 1.0 10^3/uL (1.5-3.5) L 10/08/23 05:12 [place] # (Auto) 1.3 10^3/uL (0.0-1.0) H 10/08/23 05:12 Eos # (Auto) 0.5 10^3/uL (0.0-0.7) 10/08/23 05:12 Baso # (Auto) 0.1 10^3/uL (0.0-0.1) 10/08/23 05:12 Absolute Nucleated RBC 0.00 x10^3/uL 10/08/23 05:12 Nucleated RBC % 0.0 /100WBC 10/08/23 05:12 Sodium 139 mmol/L (135-145) 10/08/23 05:12 Potassium 3.7 mmol/L (3.5-4.5) 10/08/23 05:12 Chloride 106 mmol/L (101-111) 10/08/23 05:12 Carbon Dioxide 26 mmol/L (21-32) 10/08/23 05:12 Anion Gap 7.0 (6-13) 10/08/23 05:12 BUN 20 mg/dL (6-20) 10/08/23 05:12 Creatinine 1.0 mg/dL (0.6-1.3) 10/08/23 05:12 Estimated GFR (MDRD) 52 (>89) L 10/08/23 05:12 Glucose 96 mg/dL (74-104) 10/08/23 05:12 Lactic Acid 0.9 mmol/L (0.5-2.2) 10/05/23 14:02 Calcium 7.8 mg/dL (8.5-10.3) L 10/08/23 05:12 Magnesium 1.6 mg/dL (1.7-2.3) L 10/07/23 06:30 Total Bilirubin 0.6 mg/dL (0.2-1.0) 10/05/23 10:30 AST 12 IU/L (10-42) 10/05/23 10:30 ALT 11 IU/L (10-60) 10/05/23 10:30 Alkaline Phosphatase 73 IU/L (42-121) 10/05/23 10:30 Total Protein 6.7 g/dL (6.4-8.9) 10/05/23 10:30 Albumin 3.6 g/dL (3.2-5.5) 10/05/23 10:30 Globulin 3.1 g/dL (2.1-4.2) 10/05/23 10:30 Albumin/Globulin Ratio 1.2 (1.0-2.2) 10/05/23 10:30 Lipase 24 U/L (11-82) 10/05/23 10:30 TSH 4.77 uIU/mL (0.34-5.60) 10/07/23 06:30 Urine Color YELLOW 10/05/23 10:35 Urine Clarity CLEAR (CLEAR) 10/05/23 10:35 Urine pH 5.5 PH (5.0-7.5) 10/05/23 10:35 Ur Specific [place] 1.015 (1.002-1.030) 10/05/23 10:35 Urine Protein 30 mg/dL (NEGATIVE) H 10/05/23 10:35 Urine Glucose (UA) NEGATIVE mg/dL (NEGATIVE) 10/05/23 10:35 Urine Ketones NEGATIVE mg/dL (NEGATIVE) 10/05/23 10:35 Urine Occult Blood NEGATIVE (NEGATIVE) 10/05/23 10:35 Urine Nitrite NEGATIVE (NEGATIVE) 10/05/23 10:35 Urine Bilirubin NEGATIVE (NEGATIVE) 10/05/23 10:35 Urine Urobilinogen 0.2 (NORMAL) E.U./dL (NORMAL) 10/05/23 10:35 Ur Leukocyte Esterase NEGATIVE (NEGATIVE) 10/05/23 10:35 Urine RBC 0-5 /HPF (0-5) 10/05/23 10:35 Urine WBC 0-3 /HPF (0-5) 10/05/23 10:35 Ur Squamous Epith Cells FEW Squamous (<= Few) 10/05/23 10:35 Amorphous Sediment Few /LPF 10/05/23 10:35 Urine Bacteria Few /HPF (None Seen) 10/05/23 10:35 Urine Casts 3-5 Hyaline Casts /LPF 10/05/23 10:35 Ur Microscopic Review INDICATED 10/05/23 10:35 Urine Culture Comments NOT INDICATED 10/05/23 10:35
[2023-10-08] MEDS: AMITRIPTYLINE 10 MG TABLET PO SCH (20:35)
[2023-10-08] MEDS: SODIUM CHLORIDE 0.65% NASAL SPRAY NAS SCH (20:37)
[2023-10-08] MEDS: SUCRALFATE 1 GM/10 ML UDC PO SCH (20:37)
[2023-10-08] MEDS: DEXTROSE 5%-0.9% NACL 1,000 ML IV SCH (20:48)
[2023-10-09] MEDS: SODIUM CHLORIDE FLUSH 0.9% 10 ML SYRINGE IVP SCH ×2 (00:04→08:21)
[2023-10-09] MEDS: ACETAMINOPHEN 325 MG TABLET PO SCH ×3 (00:04→08:20)
[2023-10-09 05:59] LABS: BASOPHILS # (AUTO) 0.1 10^3/uL (0.0-0.1); BASOPHILS % (AUTO) 0.5 %; EOSINOPHILS # (AUTO) 0.5 10^3/uL (0.0-0.7); EOSINOPHILS % (AUTO) 4.9 %; HCT - HEMATOCRIT 36.3 % (37.0-47.0); HGB - HEMOGLOBIN 11.7 g/dL (12.0-16.0); LYMPHOCYTES # (AUTO) 0.8 10^3/uL (1.5-3.5); LYMPHOCYTES % (AUTO) 8.2 %; MEAN CORPUSCULAR HEMOGLOBIN 31.7 pg (27.0-31.0); MEAN CORPUSCULAR HGB CONC 32.2 g/dL (32.0-36.0); MEAN CORPUSCULAR VOLUME 98.4 fL (81.0-99.0); MONOCYTES % (AUTO) 10.8 %; NEUTROPHILS # (AUTO) 6.7 10^3/uL (1.5-6.6); NEUTROPHILS % (AUTO) 73.7 %; PLT - PLATELET COUNT 357 10^3/uL (130-450); RED BLOOD COUNT 3.69 10^6/uL (4.20-5.40); RED CELL DISTRIBUTION WIDTH 12.9 % (12.0-15.0); WHITE BLOOD COUNT 9.2 x10^3/uL (4.8-10.8)
[2023-10-09 06:11] LABS: CALCIUM 8.2 mg/dL (8.5-10.3); CREATININE 0.9 mg/dL (0.6-1.3); POTASSIUM 3.8 mmol/L (3.5-4.5)
[2023-10-09] MEDS: PANTOPRAZOLE 40 MG TABLET PO SCH (06:57)
[2023-10-09] MEDS: THYROID 60 MG TABLET PO SCH (06:57)
[2023-10-09] MEDS: VERAPAMIL ER 120 MG TABLET PO SCH (08:19)
[2023-10-09] MEDS: carvediloL 12.5 MG TABLET PO SCH (08:20)
[2023-10-09] MEDS: LOSARTAN 50 MG TABLET PO SCH (08:20)
[2023-10-09] MEDS: AMOX/CLAV 875 MG/125 MG TABLET PO SCH (08:20)
[2023-10-09] MEDS: LACTOBACILLUS RHAMNOSUS GG CAPSULE PO SCH (08:21)
[2023-10-09] MEDS: MAGNESIUM OXIDE 400 MG TABLET PO SCH (08:21)
[2023-10-09 08:23] VITALS: O2SAT 96
[2023-10-09 09:58] VITALS: BP 147/67
--- NOTE | 2023-10-09 11:45 | Discharge Plan ---
Discharge Plan Problem Reviewed?: Yes Disposition: Home, Self Care Condition: Good Prescriptions: Amox/Clav 875/125 [Augmentin 875/125 Tab] 1 tablet PO Q12H 10 Days #20 tablet Diet: Regular Activity Restrictions: No Restrictions Shower Restrictions: No Driving Restrictions: No Health Concerns: recent diverticulitis with small abscesses Plan of Treatment: home with 10 day course oral antibiotics. call with any concerns [phone] [facility] surgery office as desired recommend if you have recurrent pain, nausea, vomiting that you be seen at a hospital that can offer a higher level of care such as [facility] Assessment: doing very well after bowel rest, course of antibiotics. home in good condition, tolerating diet, having bms, afebrile, normal wbc/ labs No Smoking: If you smoke, Please STOP! Call for help.
--- NOTE | 2023-10-09 11:49 | DISCHARGE SUMMARY ---
"Discharge Summary Admit Date: 11/04/23 Discharge Date: 10/09/23 Discharging Provider: israel cerrato Code Status: Attempt Resuscitation Condition at Discharge: Good Discharge Disposition: 01 Home, Self Care Discharge Facility Name: [facility] - DIAGNOSES Admission Diagnoses: diverticulitis with small abscesses Discharge Diagnoses with Status of Each Condition: home in good condition. normal abdominal exam, afebrile, normal wbc, tolerating diet, having bms - HPI History of Present Illness: present with n/v and abdominal pain. much improved after short duration bowel rest and iv abxs. home with po abxs - CONSULTS | PROCEDURES Procedures: as above. bowel rest and iv antibiotics - ALLERGIES Allergies/Adverse Reactions: Allergies Allergy/AdvReac Type Severity Reaction Status Date / Time No Known Drug Allergies Allergy Verified 10/05/23 10:04 - MEDICATIONS Home Medications: Ambulatory Orders Medication Instructions Recorded Confirmed Acetaminophen [Tylenol] 1,000 mg PO TID 10/05/23 10/06/23 Amitriptyline [Elavil] 10 mg PO HS 10/05/23 10/06/23 Losartan Potassium 100 mg PO HS 10/05/23 10/06/23 Sucralfate [Carafate] 1 tablet PO HS 10/05/23 10/05/23 Verapamil ER [[place] SA] 120 mg ORAL DAILY 10/05/23 10/05/23 carvediloL [Coreg] 1 tab PO 0700,2100 10/05/23 10/06/23 cloNIDine 0.3 MG PATCH 1 each TOP Q7D 10/05/23 10/05/23 [Yyrxnlhe-Bme-3] Calcium Carb ([place]) 500 mg PO BID 10/06/23 10/06/23 [[place]-500] Cyclobenzaprine [Flexeril] 10 mg PO TID PRN 10/06/23 10/06/23 Ferrous Bis-Glycinate Chelate 56 mg PO 1200 10/06/23 10/06/23 [Iron Bisglycinate] Lutein/Zeaxanthin [Ocuvite Lutein 1 each PO DAILY 10/06/23 10/06/23 25-5 mg Softgel] Multivit-Minerals/Folic Acid 1 tab PO BID 10/06/23 10/06/23 [Multivitamin Gummies] Sodium Chloride 0.65% [[place]] 2 sprays LEILA HS 10/06/23 10/06/23 Thyroid,Pork [[place] Thyroid] 1 tab PO QDAC 10/06/23 10/06/23 carvediloL [Coreg] 12.5 mg PO 1400 10/06/23 10/06/23 glucosamine HCL [Glucosamine HCl] 1,500 mg PO BID 10/06/23 10/06/23 Amox/Clav 875/125 [Augmentin 1 tablet PO Q12H 10 Days #20 tablet 10/09/23 875/125 Tab] - PHYSICAL EXAM AT DISCHARGE General Appearance: positive: Alert Eyes Bilateral: positive: PERRL, EOMI ENT: positive: No signs of dehydration Neck: positive: No JVD Respiratory: positive: No respiratory distress Abdomen: positive: No distention Neurologic/Psychiatric: positive: Oriented x3 - LABS Result Diagrams: 10/09/23 05:32 10/09/23 05:32 - DIAGNOSTIC IMAGING Diagnostic Imaging Results: Read independently - FOLLOW UP Follow Up: [facility] as needed call with any concerns [phone] recommend you go to a hospital that can offer a higher level of care such as [facility] if you develop fevers, recurrent pain and nausea and vomiting"
== END 2023-10-09 12:45 | disposition home or self-care (01) | DRG 392 ==
LOC: ED 09:52 → MS2 16:30
PROVIDERS: ADMIT Surgery; ATTEND Surgery
DX: K65.1 Peritoneal abscess (principal); K57.20 Diverticulitis of large intestine with perforation and abscess without bleeding; Z86.73 Personal history of transient ischemic attack (TIA), and cerebral infarction without residual deficits; K57.30 Diverticulosis of large intestine without perforation or abscess without bleeding; K44.9 Diaphragmatic hernia without obstruction or gangrene; I10 Essential (primary) hypertension; E03.9 Hypothyroidism, unspecified; F32.A Depression, unspecified; K21.9 Gastro-esophageal reflux disease without esophagitis; M19.90 Unspecified osteoarthritis, unspecified site; R63.0 Anorexia; Z68.25 Body mass index [BMI] 25.0-25.9, adult; R79.89 Other specified abnormal findings of blood chemistry; E83.42 Hypomagnesemia
CPT/HCPCS: 36415; 74177; 80048; 80053; 81001; 83605; 83690; 83735; 84443; 85025; 87040; 96365; 99285; A9270; Q9967; 81003; 87086

== ENCOUNTER 2023-11-17 07:17 | Outpatient (CLI) | payer MEDICARE ==
[2023-11-17 15:21] LABS: BASOPHILS # (AUTO) 0.1 10^3/uL (0.0-0.1); BASOPHILS % (AUTO) 0.8 %; EOSINOPHILS # (AUTO) 0.3 10^3/uL (0.0-0.7); EOSINOPHILS % (AUTO) 5.2 %; HCT - HEMATOCRIT 39.4 % (37.0-47.0); HGB - HEMOGLOBIN 13.2 g/dL (12.0-16.0); LYMPHOCYTES % (AUTO) 15.1 %; MEAN CORPUSCULAR HEMOGLOBIN 33.4 pg (27.0-31.0); MEAN CORPUSCULAR HGB CONC 33.5 g/dL (32.0-36.0); MEAN CORPUSCULAR VOLUME 99.7 fL (81.0-99.0); MEAN PLATELET VOLUME 9.7 fL (7.9-10.8); MONOCYTES # (AUTO) 0.8 10^3/uL (0.0-1.0); MONOCYTES % (AUTO) 12.6 %; NEUTROPHILS # (AUTO) 4.2 10^3/uL (1.5-6.6); NEUTROPHILS % (AUTO) 66.1 %; PLT - PLATELET COUNT 298 10^3/uL (130-450); RED BLOOD COUNT 3.95 10^6/uL (4.20-5.40); RED CELL DISTRIBUTION WIDTH 13.7 % (12.0-15.0); WHITE BLOOD COUNT 6.3 x10^3/uL (4.8-10.8)
[2023-11-17 15:54] LABS: ALBUMIN 3.8 g/dL (3.2-5.5); ALBUMIN/GLOBULIN RATIO 1.4 (1.0-2.2); ALKALINE PHOSPHATASE 63 IU/L (42-121); ALT ALANINE AMINOTRANSFERASE 14 IU/L (10-60); AST ASPARTATE AMINOTRANSFERASE 18 IU/L (10-42); BILIRUBIN,TOTAL 0.5 mg/dL (0.2-1.0); BUN - BLOOD UREA NITROGEN 26 mg/dL (6-20); CALCIUM 8.8 mg/dL (8.5-10.3); CARBON DIOXIDE - CO2 28 mmol/L (21-32); CHLORIDE 101 mmol/L (101-111); CHOL/HDL RATIO 4.4 (<4.4); CHOLESTEROL 198 mg/dL; CREATININE 0.9 mg/dL (0.6-1.3); GFR - MDRD 59 (>89); GLUCOSE 89 mg/dL (74-104); HDL CHOLESTEROL 45 mg/dL; LDL CHOLESTEROL,CALCULATED 107 mg/dL; LDL/HDL RATIO 2.4 (<4.4); POTASSIUM 4.6 mmol/L (3.5-4.5); SODIUM 134 mmol/L (135-145); TOTAL PROTEIN 6.5 g/dL (6.4-8.9); TRIGLYCERIDES 231 mg/dL (48-352); VLDL CHOLESTEROL 46 mg/dL
[2023-11-17 15:55] LABS: THYROID STIMULATING HORMONE 1.96 uIU/mL (0.34-5.60)
== END 2023-11-17 07:18 | disposition home or self-care (01) ==
LOC: LAB.S 07:17
PROVIDERS: ATTEND Registered Nurse
DX: Z13.228 Encounter for screening for other metabolic disorders (principal); Z13.220 Encounter for screening for lipoid disorders; Z13.29 Encounter for screening for other suspected endocrine disorder; Z13.0 Encounter for screening for diseases of the blood and blood-forming organs and certain disorders involving the immune mechanism
CPT/HCPCS: 36415; 80053; 80061; 83721; 84443; 85025